=== PATIENT | male | born 1975 | race American Indian/Alaskan Native ===

== ENCOUNTER 2021-04-01 15:26 | Inpatient (IN) | payer SELFPAY ==
--- NOTE | 2021-04-01 15:03 | Emergency Department Report ---
HPI - General Chief Complaint: Seizure - HPI HPI: 46-year-old male with history of hypertension and jal-qfjwueb-[id number] diabetes mellitus brought in by EMS after the patient had an episode of shaking this morning. According to the EMS report, the patient has been noncompliant with all of his medications for an unknown period of time. His partner called 911 for seizure-like activity and when EMS arrived he seemed postictal and had been incontinent of urine. His fingerstick blood glucose was 479. He was hypertensive and slightly tachycardic in the 110s. Then almost immediately after arriving in our emergency department the patient apparently had another convulsive seizure which was witnessed. It started with shaking of his left lower extremity and deviation of his eyes to the right side and initially the patient was conscious before becoming unconscious and having convulsive activity for approximately 3 minutes before spontaneously resolving. Further details of the HPI are highly limited due to the patient's current clinical condition. ED Past Medical Hx - Past Medical History Previous Medical History?: Yes Hx Hypertension: Yes Hx Diabetes: Yes ED Review of Systems ROS: Stated complaint: SEIZURES Other details as noted in HPI Comment: Unobtainable due to pts medical conditions Physical Exam - Physical Exam Physical Exam: GENERAL: Well developed and well nourished. Extremely somnolent and arousable o nly to loud voice. HEAD: Normocephalic. No obvious signs of trauma. ENT: Very dry mucous membranes. There is a small laceration to the tongue. EYES: Extraocular movements are intact. Pupils are equal round and reactive to light bilaterally NECK: Supple. Full ROM is intact. Trachea is midline. LUNGS: Tachypneic. Equal chest rise bilaterally. Clear to auscultation bilaterally. CARDIOVASCULAR: Tachycardic with regular rhythm. No murmurs or rubs. VASCULAR: Cap refill < 2 seconds ABDOMEN: Abdomen is soft and nondistended. There is no significant tenderness, guarding or rebound. SKIN: Skin is warm and dry NEURO: Patient is awake, but very somnolent. Appears postictal. When examined 1 hour after presentation: manufacturer agent II-XII grossly intact. No focal deficits. Normal motor and sensory exam throughout. MUSCULOSKELETAL: No obvious deformities. No significant tenderness. Normal ROM throughout. BACK/SPINE: No midline tenderness or step-offs of the C/T/L spine. No costovertebral angle tenderness. ED Medical Decision Making - Lab Data Result diagrams: 04/01/21 15:34 04/01/21 17:51 Lab Results 04/01/21 04/01/21 04/01/21 Range/Units 15:32 15:34 15:34 WBC 20.4 H (4.5-11.0) K/mm3 RBC 6.88 H (3.65-5.03) M/mm3 Hgb 16.4 H (11.8-15.2) gm/dl Hct 56.3 H (35.5-45.6) % MCV 82 L (84-94) fl MCH 24 L (28-32) pg MCHC 29 L (32-34) % RDW 20.3 H (13.2-15.2) % Plt Count 860 H (140-440) K/mm3 Lymph # (Auto) Rheumatologist Add Manual Diff Complete Total Counted 100 Seg Neuts % (Manual) 53.0 (40.0-70.0) % Band Neutrophils % 4.0 % Lymphocytes % (Manual) 34.0 (13.4-35.0) % Reactive Lymphs % (Man) 5.0 % Monocytes % (Manual) 3.0 (0.0-7.3) % Blast Cells % 1.0 % Nucleated RBC % Not Reportable Seg Neutrophils # Man 10.8 H (1.8-7.7) K/mm3 Band Neutrophils # 0.8 K/mm3 Lymphocytes # (Manual) 6.9 H (1.2-5.4) K/mm3 Abs React Lymphs (Man) 1.0 K/mm3 Monocytes # (Manual) 0.6 (0.0-0.8) K/mm3 Eosinophils # (Manual) 0.0 (0.0-0.4) K/mm3 Basophils # (Manual) 0.0 (0.0-0.1) K/mm3 Metamyelocytes # 0.0 K/mm3 Myelocytes # 0.0 K/mm3 Promyelocytes # 0.0 K/mm3 Blast Cells # 0.4 K/mm3 WBC Morphology Not Reportable Hypersegmented Neuts Not Reportable Hyposegmented Neuts Not Reportable Hypogranular Neuts Not Reportable Smudge Cells Not Reportable Toxic Granulation Not Reportable Toxic Vacuolation Not Reportable Dohle Bodies Not Reportable Pelger-Huet Anomaly Not Reportable Brinda Rods Not Reportable Platelet Estimate Consistent w auto Clumped Platelets Not Reportable Plt Clumps, EDTA Not Reportable Large Platelets Not Reportable Giant Platelets Not Reportable Platelet Satelliting Not Reportable Plt Morphology Comment Not Reportable RBC Morphology Not Reportable Dimorphic RBCs Not Reportable Polychromasia Not Reportable Hypochromasia 1+ Poikilocytosis Not Reportable Anisocytosis 1+ Microcytosis Not Reportable Macrocytosis Not Reportable Spherocytes Not Reportable Pappenheimer Bodies Not Reportable Sickle Cells Not Reportable Target Cells Not Reportable Tear Drop Cells Not Reportable Ovalocytes Not Reportable Helmet Cells Not Reportable [place] Bodies Not Reportable Barney Rings Not Reportable [place] Cells Not Reportable Bite Cells Not Reportable Crenated Cell Not Reportable Elliptocytes Not Reportable Acanthocytes (Spur) Not Reportable Rouleaux Not Reportable Hemoglobin C Crystals Not Reportable Schistocytes Not Reportable Malaria parasites Not Reportable Facundo Bodies Not Reportable Hem Pathologist Commnt No PT 13.9 (12.2-14.9) Sec. INR 0.96 (0.87-1.13) APTT 26.1 (24.2-36.6) Sec. VBG pH (7.320-7.420) Sodium (137-145) mmol/L Potassium (3.6-5.0) mmol/L Chloride (98-107) mmol/L Carbon Dioxide (22-30) mmol/L Anion Gap mmol/L BUN (9-20) mg/dL Creatinine (0.8-1.3) mg/dL Estimated GFR ml/min BUN/Creatinine Ratio % Glucose (75-100) mg/dL POC Glucose 555 H (70-105) mg/dL Calcium (8.4-10.2) mg/dL Magnesium (1.7-2.3) mg/dL Total Bilirubin (0.1-1.2) mg/dL Direct Bilirubin (0-0.2) mg/dL Indirect Bilirubin mg/dL AST (5-40) units/L ALT (7-56) units/L Alkaline Phosphatase (35-129) units/L Ammonia (25-60) umol/L Troponin T (0.00-0.029) ng/mL NT-Pro-B Natriuret Pep (0-450) pg/mL Total Protein (6.3-8.2) g/dL Albumin (3.9-5) g/dL Albumin/Globulin Ratio % Lipase (13-60) units/L TSH (0.270-4.200) mlU/mL Salicylates (2.8-20.0) mg/dL Acetaminophen (10.0-30.0) ug/mL Plasma/Serum Alcohol (0-0.07) % 04/01/21 04/01/21 04/01/21 Range/Units 15:34 15:34 15:34 WBC (4.5-11.0) K/mm3 RBC (3.65-5.03) M/mm3 Hgb (11.8-15.2) gm/dl Hct (35.5-45.6) % MCV (84-94) fl MCH (28-32) pg MCHC (32-34) % RDW (13.2-15.2) % Plt Count (140-440) K/mm3 Lymph # (Auto) Add Manual Diff Total Counted Seg Neuts % (Manual) (40.0-70.0) % Band Neutrophils % % Lymphocytes % (Manual) (13.4-35.0) % Reactive Lymphs % (Man) % Monocytes % (Manual) (0.0-7.3) % Blast Cells % % Nucleated RBC % Seg Neutrophils # Man (1.8-7.7) K/mm3 Band Neutrophils # K/mm3 Lymphocytes # (Manual) (1.2-5.4) K/mm3 Abs React Lymphs (Man) K/mm3 Monocytes # (Manual) (0.0-0.8) K/mm3 Eosinophils # (Manual) (0.0-0.4) K/mm3 Basophils # (Manual) (0.0-0.1) K/mm3 Metamyelocytes # K/mm3 Myelocytes # K/mm3 Promyelocytes # K/mm3 Blast Cells # K/mm3 WBC Morphology Hypersegmented Neuts Hyposegmented Neuts Hypogranular Neuts Smudge Cells Toxic Granulation Toxic Vacuolation Dohle Bodies Pelger-Huet Anomaly Brinda Rods Platelet Estimate Clumped Platelets Plt Clumps, EDTA Large Platelets Giant Platelets Platelet Satelliting Plt Morphology Comment RBC Morphology Dimorphic RBCs Polychromasia Hypochromasia Poikilocytosis Anisocytosis Microcytosis Macrocytosis Spherocytes Pappenheimer Bodies Sickle Cells Target Cells Tear Drop Cells Ovalocytes Helmet Cells [place] Bodies Barney Rings [place] Cells Bite Cells Crenated Cell Elliptocytes Acanthocytes (Spur) Rouleaux Hemoglobin C Crystals Schistocytes Malaria parasites Facundo Bodies Hem Pathologist Commnt PT (12.2-14.9) Sec. INR (0.87-1.13) APTT (24.2-36.6) Sec. VBG pH (7.320-7.420) Sodium 137 (137-145) mmol/L Potassium 3.4 L (3.6-5.0) mmol/L Chloride 96.1 L (98-107) mmol/L Carbon Dioxide 7 L* (22-30) mmol/L Anion Gap 37 mmol/L BUN 16 (9-20) mg/dL Creatinine 1.5 H (0.8-1.3) mg/dL Estimated GFR > 60 ml/min BUN/Creatinine Ratio 11 % Glucose 578 H* (75-100) mg/dL POC Glucose (70-105) mg/dL Calcium 9.9 (8.4-10.2) mg/dL Magnesium 2.30 (1.7-2.3) mg/dL Total Bilirubin 0.20 (0.1-1.2) mg/dL Direct Bilirubin < 0.2 (0-0.2) mg/dL Indirect Bilirubin 0.0 mg/dL AST 26 (5-40) units/L ALT 29 (7-56) units/L Alkaline Phosphatase 163 H (35-129) units/L Ammonia 98.0 H (25-60) umol/L Troponin T < 0.010 (0.00-0.029) ng/mL NT-Pro-B Natriuret Pep 101.8 (0-450) pg/mL Total Protein 8.1 (6.3-8.2) g/dL Albumin 4.4 (3.9-5) g/dL Albumin/Globulin Ratio 1.2 % Lipase 32 (13-60) units/L TSH 1.990 (0.270-4.200) mlU/mL Salicylates (2.8-20.0) mg/dL Acetaminophen (10.0-30.0) ug/mL Plasma/Serum Alcohol (0-0.07) % 04/01/21 04/01/21 04/01/21 Range/Units 15:34 15:34 15:34 WBC (4.5-11.0) K/mm3 RBC (3.65-5.03) M/mm3 Hgb (11.8-15.2) gm/dl Hct (35.5-45.6) % MCV (84-94) fl MCH (28-32) pg MCHC (32-34) % RDW (13.2-15.2) % Plt Count (140-440) K/mm3 Lymph # (Auto) Add Manual Diff Total Counted Seg Neuts % (Manual) (40.0-70.0) % Band Neutrophils % % Lymphocytes % (Manual) (13.4-35.0) % Reactive Lymphs % (Man) % Monocytes % (Manual) (0.0-7.3) % Blast Cells % % Nucleated RBC % Seg Neutrophils # Man (1.8-7.7) K/mm3 Band Neutrophils # K/mm3 Lymphocytes # (Manual) (1.2-5.4) K/mm3 Abs React Lymphs (Man) K/mm3 Monocytes # (Manual) (0.0-0.8) K/mm3 Eosinophils # (Manual) (0.0-0.4) K/mm3 Basophils # (Manual) (0.0-0.1) K/mm3 Metamyelocytes # K/mm3 Myelocytes # K/mm3 Promyelocytes # K/mm3 Blast Cells # K/mm3 WBC Morphology Hypersegmented Neuts Hyposegmented Neuts Hypogranular Neuts Smudge Cells Toxic Granulation Toxic Vacuolation Dohle Bodies Pelger-Huet Anomaly Brinda Rods Platelet Estimate Clumped Platelets Plt Clumps, EDTA Large Platelets Giant Platelets Platelet Satelliting Plt Morphology Comment RBC Morphology Dimorphic RBCs Polychromasia Hypochromasia Poikilocytosis Anisocytosis Microcytosis Macrocytosis Spherocytes Pappenheimer Bodies Sickle Cells Target Cells Tear Drop Cells Ovalocytes Helmet Cells [place] Bodies Barney Rings [place] Cells Bite Cells Crenated Cell Elliptocytes Acanthocytes (Spur) Rouleaux Hemoglobin C Crystals Schistocytes Malaria parasites Facundo Bodies Hem Pathologist Commnt PT (12.2-14.9) Sec. INR (0.87-1.13) APTT (24.2-36.6) Sec. VBG pH (7.320-7.420) Sodium (137-145) mmol/L Potassium (3.6-5.0) mmol/L Chloride (98-107) mmol/L Carbon Dioxide (22-30) mmol/L Anion Gap mmol/L BUN (9-20) mg/dL Creatinine (0.8-1.3) mg/dL Estimated GFR ml/min BUN/Creatinine Ratio % Glucose (75-100) mg/dL POC Glucose (70-105) mg/dL Calcium (8.4-10.2) mg/dL Magnesium (1.7-2.3) mg/dL Total Bilirubin (0.1-1.2) mg/dL Direct Bilirubin (0-0.2) mg/dL Indirect Bilirubin mg/dL AST (5-40) units/L ALT (7-56) units/L Alkaline Phosphatase (35-129) units/L Ammonia (25-60) umol/L Troponin T (0.00-0.029) ng/mL NT-Pro-B Natriuret Pep (0-450) pg/mL Total Protein (6.3-8.2) g/dL Albumin (3.9-5) g/dL Albumin/Globulin Ratio % Lipase (13-60) units/L TSH (0.270-4.200) mlU/mL Salicylates < 0.3 L (2.8-20.0) mg/dL Acetaminophen 5.0 L (10.0-30.0) ug/mL Plasma/Serum Alcohol < 0.01 (0-0.07) % 04/01/21 Range/Units 15:34 WBC (4.5-11.0) K/mm3 RBC (3.65-5.03) M/mm3 Hgb (11.8-15.2) gm/dl Hct (35.5-45.6) % MCV (84-94) fl MCH (28-32) pg MCHC (32-34) % RDW (13.2-15.2) % Plt Count (140-440) K/mm3 Lymph # (Auto) Add Manual Diff Total Counted Seg Neuts % (Manual) (40.0-70.0) % Band Neutrophils % % Lymphocytes % (Manual) (13.4-35.0) % Reactive Lymphs % (Man) % Monocytes % (Manual) (0.0-7.3) % Blast Cells % % Nucleated RBC % Seg Neutrophils # Man (1.8-7.7) K/mm3 Band Neutrophils # K/mm3 Lymphocytes # (Manual) (1.2-5.4) K/mm3 Abs React Lymphs (Man) K/mm3 Monocytes # (Manual) (0.0-0.8) K/mm3 Eosinophils # (Manual) (0.0-0.4) K/mm3 Basophils # (Manual) (0.0-0.1) K/mm3 Metamyelocytes # K/mm3 Myelocytes # K/mm3 Promyelocytes # K/mm3 Blast Cells # K/mm3 WBC Morphology Hypersegmented Neuts Hyposegmented Neuts Hypogranular Neuts Smudge Cells Toxic Granulation Toxic Vacuolation Dohle Bodies Pelger-Huet Anomaly Brinda Rods Platelet Estimate Clumped Platelets Plt Clumps, EDTA Large Platelets Giant Platelets Platelet Satelliting Plt Morphology Comment RBC Morphology Dimorphic RBCs Polychromasia Hypochromasia Poikilocytosis Anisocytosis Microcytosis Macrocytosis Spherocytes Pappenheimer Bodies Sickle Cells Target Cells Tear Drop Cells Ovalocytes Helmet Cells Al[place] Bodies Barney Rings [place] Cells Bite Cells Crenated Cell Elliptocytes Acanthocytes (Spur) Rouleaux Hemoglobin C Crystals Schistocytes Malaria parasites Facundo Bodies Hem Pathologist Commnt PT (12.2-14.9) Sec. INR (0.87-1.13) APTT (24.2-36.6) Sec. VBG pH 7.102 L* (7.320-7.420) Sodium (137-145) mmol/L Potassium (3.6-5.0) mmol/L Chloride (98-107) mmol/L Carbon Dioxide (22-30) mmol/L Anion Gap mmol/L BUN (9-20) mg/dL Creatinine (0.8-1.3) mg/dL Estimated GFR ml/min BUN/Creatinine Ratio % Glucose (75-100) mg/dL POC Glucose (70-105) mg/dL Calcium (8.4-10.2) mg/dL Magnesium (1.7-2.3) mg/dL Total Bilirubin (0.1-1.2) mg/dL Direct Bilirubin (0-0.2) mg/dL Indirect Bilirubin mg/dL AST (5-40) units/L ALT (7-56) units/L Alkaline Phosphatase (35-129) units/L Ammonia (25-60) umol/L Troponin T (0.00-0.029) ng/mL NT-Pro-B Natriuret Pep (0-450) pg/mL Total Protein (6.3-8.2) g/dL Albumin (3.9-5) g/dL Albumin/Globulin Ratio % Lipase (13-60) units/L TSH (0.270-4.200) mlU/mL Salicylates (2.8-20.0) mg/dL Acetaminophen (10.0-30.0) ug/mL Plasma/Serum Alcohol (0-0.07) % - Medical Decision Making 46-year-old male with history of diabetes mellitus noncompliant with medications brought in initially for shaking but with first partial and then tonic-clonic seizure while awaiting a room in our emergency department. Initial assessment he appears postictal and has been incontinent of urine. He also has a small hemostatic tongue lac. Fingerstick blood glucose is in the high 400s. Given that he has now had multiple seizures according to the EMS report we will load with 1500 mg of IV Keppra. We will order very broad work-up including sepsis labs and CT of the head to assess for evidence of intracranial bleeding versus cerebral edema versus other intracranial abnormality to explain the patient's presentation. We will place a call to teleneurology. We will start with 1 L of normal saline for now. Spoke with Dr. Aldana of teleneurology who agrees with current management with Keppra loading. CT of the head reveals no acute abnormalities. Labs reveal several abnormalities including white blood cell count of 20.4 and hemoglobin of 16.4 shows platelets of 860 which I suspect is related to extreme volume depletion and hemoconcentration. Creatinine is elevated at 1.5 from unknown baseline. Severe acidosis with bicarb of 7 and anion gap of 37. Hyperglycemic in the 500s. Hypokalemic with potassium of 3.4. Given this dangerous potassium level we will give 40 mEq of p.o. potassium and 40 mEq of IV potassium. He also has elevated ammonia of 98 which I suspect is related to severe dehydration and not hepatic encephalopathy given normal liver enzymes. We will give 2 L of LR and broad-spectrum vancomycin and ceftriaxone given his leukocytosis. Insulin drip was ordered per DKA protocol. On repeat assessment, patient is much more alert now and able to participate in conversation. He has a nonfocal exam at this time, although he remains with severe somnolence. At 4:47 PM I spoke with Dr. Nam, the on-call hospitalist regarding the case. He accepts patient for admission and will assume care. At 5:10 PM I spoke with Dr. Mckeon of critical care medicine regarding the case. He accepts the patient for admission to the ICU Critical Care Time: Yes Critical care time in (mins) excluding proc time.: 50 Critical care attestation.: If time is entered above; I have spent that time in minutes in the direct care of this critically ill patient, excluding procedure time. Critical care time was spent in the evaluation/assessment, work-up, and management of new onset seizures, DKA with severe metabolic encephalopathy requiring insulin drip, IV Keppra loading, and consultation with multiple specialist as well as frequent reevaluation reassessment. ED Disposition Clinical Impression: Acute kidney injury (LAY) with acute tubular necrosis (ATN), Toxic metabolic encephalopathy, Acidosis, Status epilepticus, Dehydration, Hyperammonemia Sepsis Qualifiers: Severe sepsis acute organ dysfunction type: encephalopathy DKA (diabetic ketoacidosis) Qualifiers: Diabetes mellitus complication detail: without coma Disposition: 09 ADMITTED INPATIENT Is pt being admited?: Yes Condition: Critical
[~2021-04-01 15:26] MED LIST: SODIUM CHLORIDE 0.9% 1000 ML 1,000 ML IV ONE; levETIRAcetam 1000 MG/NS 0.75% 1,000 MG/100 ML BAG IV ONE; levETIRAcetam 500 MG in DEXTROSE 5% IN WATER 100 ML IV ONE
[2021-04-01] MEDS ORDERED: LORazepam 2 MG/ML VIAL IV ONE (15:28)
--- NOTE | 2021-04-01 15:33 | Consultation ---
Medications and Allergies Active Meds: Active Medications Levetiracetam (Keppra 1,000 Mg/Ns 0.75% 100ml) 1,000 mg in 100 mls @ 400 mls/hr IV ONCE ONE Stop: 04/01/21 15:15 Levetiracetam 500 mg/ Dextrose 105 mls @ 400 mls/hr IV ONCE ONE Stop: 04/01/21 15:16 Sodium Chloride (Nacl 0.9% 1000 Ml) 1,000 mls @ 999 mls/hr IV BOLUS ONE Stop: 04/01/21 16:02 Lorazepam (Lorazepam 2 Mg/Ml Vial) 2 mg IV ONCE ONE Stop: 04/01/21 15:29 Assessment and Plan [facility] Consult Note # Demographics Consult Type: Acute Stroke Level 2 (4.5-24 hrs) Patient Location: Emergency Room First Name: may Last Name: david Gender: Male Facility: [facility] Time of Initial Page (Eastern Time): 04/01/2021, 15:06 Time of Return Call (Eastern Time): 04/01/2021, 15:07 Phone Only Consult: 46M with no seizure history had what reported to be seizure. Post-ictal after reportedly. Hyperglycemia reported. CT head should be performed to r/o obvious structural issue, then MRI brain wwo, eeg recommended. Agree with empiric keppra, continue 500mg PO/IV for now. Seizure precautions, no driving. # Logistics Telemedicine: phone only
[2021-04-01 15:54] LABS: Mean Corpuscular HGB Conc 29 % (32-34); Mean Corpuscular Volume 82 fl (84-94); Platelet Count 860 K/mm3 (140-440); Red Blood Count 6.88 M/mm3 (3.65-5.03)
[2021-04-01 16:17] LABS: Alanine Aminotransferase 29 units/L (7-56); Albumin 4.4 g/dL (3.9-5); BUN/Creatinine Ratio 11; Blood Urea Nitrogen 16 mg/dL (9-20); Calcium 9.9 mg/dL (8.4-10.2); Hemoglobin 16.4 gm/dl (11.8-15.2); Hemolysis Index 15
[2021-04-01 16:18] LABS: Hematocrit 56.3 % (35.5-45.6); Red Cell Distribution Width 20.3 % (13.2-15.2)
--- NOTE | 2021-04-01 16:19 | Cat Scan Report ---
. CT head/brain wo con INDICATION / CLINICAL INFORMATION: 46 years Male; seizure X2 . TECHNIQUE: Routine CT head without contrast. All CT scans at this location are performed using CT dos e reduction for ALARA by means of automated exposure control. COMPARISON: None. FINDINGS: BRAIN / INTRACRANIAL CONTENTS: No acute hemorrhage, mass effect, midline shift, hydrocephalus, or acu te, large territorial infarct. No signs of significant atrophy or chronic infarct. No significant whi te matter abnormality seen. CRANIOCERVICAL JUNCTION: No significant abnormality. ORBITS: No significant abnormality of visualized orbits. SINUSES / MASTOIDS: Moderate mucosal thickening seen in the right maxillary antrum. ADDITIONAL FINDINGS: None. IMPRESSION: 1. No focal mass, hemorrhage, hydrocephalus, or acute, large territorial infarct. Signer Name: Ricardo Tubbs MD, III Signed: 04/01/2021 4:14 PM Workstation Name: [id number]
[2021-04-01 16:20] LABS: Bilirubin,Direct < 0.2 mg/dL (0-0.2)
[2021-04-01] MEDS ORDERED: SODIUM CHLORIDE 0.9% 1000 ML 1,000 ML IV ONE (16:38)
[2021-04-01 16:39] LABS: INR 0.96 (0.87-1.13); Partial Thromboplastin Time 26.1 Sec. (24.2-36.6)
[2021-04-01] MEDS ORDERED: POTASSIUM CHLORIDE ER 20 MEQ TAB PO ONE (16:41)
[2021-04-01] MEDS ORDERED: LACTATED RINGERS 1,000 ML IV ONE ×2 (16:42)
--- NOTE | 2021-04-01 16:48 | History and Physical Report ---
History of Present Illness Chief complaint: Confused History of present illness: 46 YO Male with HTN, DM, Medication noncompliance presents to ED for evaluation. Patient is confused and lethargic at the time my evaluation is unable to provide history. Patient history brought by EMS staff, ED staff, as well as the patient's friend. As per patient friend the patient has experienced increased confusion and weakness over the past 1 day with worsening symptoms over the same timeframe. Patient was found to have a witnessed seizure today. EMS was notified due to worsening of the aforementioned symptoms. Upon arrival the patient was found to be in distress and subsequent transported to [facility] for further care and evaluation of the aforementioned symptoms. The patient was seen and evaluated in the emergency department. All lab and imaging studies reviewed. The patient was found to have bilateral pneumonia on chest x-ray complicated by sepsis as well as diabetic ketoacidosis, acute kidney injury, and toxic metabolic encephalopathy. Patient also found to have status epilepticus. Patient admitted to ICU and initiated on sepsis protocol, DKA protocol, pneumonia protocol, as well as coronavirus protocol. Patient has diminished cognition at the time my evaluation but has a positive gag reflex and is able to protect his airway at the time my evaluation. Patient loaded with Keppra in the emergency department. No prior admission for review. No medication listed at time of admission for reconciliation. Advanced care planning conducted in ED. Past History Past Medical History: diabetes, hypertension Past Surgical History: No surgical history, Other (Reviewed) Social history: single. denies: smoking, alcohol abuse, prescription drug abuse Family history: diabetes, hypertension Medications and Allergies Allergies Allergy/AdvReac Type Severity Reaction Status Date / Time No Known Allergies Allergy Unverified 04/01/21 15:33 Active Meds: Active Medications Sodium Chloride (Nacl 0.9% 1000 Ml) 1,000 mls @ 999 mls/hr IV BOLUS ONE Stop: 04/01/21 17:38 Potassium Chloride (Kcl 10meq/100ml) 10 meq in 100 mls @ 100 mls/hr IV Q1H DUY Stop: 04/01/21 20:59 Lactated Ringer's (Lactated Ringers) 1,000 mls @ 999 mls/hr IV BOLUS ONE Stop: 04/01/21 17:42 Lactated Ringer's (Lactated Ringers) 1,000 mls @ 999 mls/hr IV BOLUS ONE Stop: 04/01/21 17:42 Review of Systems ROS unobtainable: due to mental status Exam - Constitutional General appearance: Present: severe distress - EENT Eyes: Present: PERRL ENT: clear oral mucosa, hearing decreased - Neck Neck: Present: supple, normal ROM - Respiratory Respiratory effort: labored, accessory muscle use Respiratory: bilateral: diminished, rhonchi - Cardiovascular Rhythm: other (Tachycardia) Heart Sounds: Present: S1 & S2. Absent: rub, click - Extremities Extremities: pulses symmetrical, No edema Peripheral Pulses: abnormal (Capillary refill greater than 3.5 seconds) - Abdominal Male genitourinary: Present: normal - Integumentary Integumentary: Present: dry, clammy, decreased turgor - Musculoskeletal Musculoskeletal: generalized weakness - Psychiatric Psychiatric: no appropriate mood/affect, no intact judgment & insight, no memory intact - Neurologic Neurologic: CNII-XII intact, no focal deficits, moves all extremities, no gait normal HEART Score - HEART Score Troponin: Troponin T < 0.010 ng/mL (0.00-0.029) 04/01/21 15:34 Results - Labs CBC & Chem 7: 04/01/21 15:34 04/01/21 15:34 Labs: Abnormal lab results 04/01/21 04/01/21 04/01/21 Range/Units 15:32 15:34 15:34 WBC 20.4 H (4.5-11.0) K/mm3 RBC 6.88 H (3.65-5.03) M/mm3 Hgb 16.4 H (11.8-15.2) gm/dl Hct 56.3 H (35.5-45.6) % MCV 82 L (84-94) fl MCH 24 L (28-32) pg MCHC 29 L (32-34) % RDW 20.3 H (13.2-15.2) % Plt Count 860 H (140-440) K/mm3 VBG pH (7.320-7.420) Potassium 3.4 L (3.6-5.0) mmol/L Chloride 96.1 L (98-107) mmol/L Carbon Dioxide 7 L* (22-30) mmol/L Creatinine 1.5 H (0.8-1.3) mg/dL Glucose 578 H* (75-100) mg/dL POC Glucose 555 H (70-105) mg/dL Alkaline Phosphatase 163 H (35-129) units/L Ammonia (25-60) umol/L Salicylates (2.8-20.0) mg/dL Acetaminophen (10.0-30.0) ug/mL 04/01/21 04/01/21 04/01/21 Range/Units 15:34 15:34 15:34 WBC (4.5-11.0) K/mm3 RBC (3.65-5.03) M/mm3 Hgb (11.8-15.2) gm/dl Hct (35.5-45.6) % MCV (84-94) fl MCH (28-32) pg MCHC (32-34) % RDW (13.2-15.2) % Plt Count (140-440) K/mm3 VBG pH (7.320-7.420) Potassium (3.6-5.0) mmol/L Chloride (98-107) mmol/L Carbon Dioxide (22-30) mmol/L Creatinine (0.8-1.3) mg/dL Glucose (75-100) mg/dL POC Glucose (70-105) mg/dL Alkaline Phosphatase (35-129) units/L Ammonia 98.0 H (25-60) umol/L Salicylates < 0.3 L (2.8-20.0) mg/dL Acetaminophen 5.0 L (10.0-30.0) ug/mL 04/01/21 Range/Units 15:34 WBC (4.5-11.0) K/mm3 RBC (3.65-5.03) M/mm3 Hgb (11.8-15.2) gm/dl Hct (35.5-45.6) % MCV (84-94) fl MCH (28-32) pg MCHC (32-34) % RDW (13.2-15.2) % Plt Count (140-440) K/mm3 VBG pH 7.102 L* (7.320-7.420) Potassium (3.6-5.0) mmol/L Chloride (98-107) mmol/L Carbon Dioxide (22-30) mmol/L Creatinine (0.8-1.3) mg/dL Glucose (75-100) mg/dL POC Glucose (70-105) mg/dL Alkaline Phosphatase (35-129) units/L Ammonia (25-60) umol/L Salicylates (2.8-20.0) mg/dL Acetaminophen (10.0-30.0) ug/mL Assessment and Plan - Patient Problems (1) Sepsis Current Visit: Yes Status: Acute Qualifiers: Severe sepsis acute organ dysfunction type: encephalopathy Plan to address problem: Sepsis protocol: Chest x-ray, CBC, CMP, urinalysis, IV fluid resuscitation therapy, IV antibiotic therapy, supplemental oxygen, serial lactic acid level, monitor fluid balance, maintain mean arterial pressure greater than or equal to 65, blood culture, repeat CBC in a.m. The high probability of a clinically significant, sudden or life threatening deterioration of the [pulmonary, renal, infectious disease, endocrine] system(s) required my full and direct attention, intervention and personal management. The aggregate critical care time was [65] minutes. This time is in addition to time spent performing reported procedures but includes the following: [x] Data Review and interpretation [x] Patient assessment and monitoring of vital signs [x] Documentation [x] Medication orders and management (2) DKA (diabetic ketoacidosis) Current Visit: Yes Status: Acute Qualifiers: Diabetes mellitus complication detail: without coma Plan to address problem: DKA protocol: IV fluid resuscitation therapy, insulin drip, serial BMP, monitor anion gap, potassium repletion as per protocol, (3) Pneumonia Current Visit: Yes Status: Acute Plan to address problem: Pneumonia protocol: Chest x-ray, CBC, CMP, IV antibiotic therapy, supplemental oxygen, pulse oximetry, nebulizer therapy, supportive care. (4) Suspected 2019 novel coronavirus infection Current Visit: Yes Status: Acute Plan to address problem: Coronavirus protocol: IV antibiotic therapy, IV steroid therapy, vitamin C therapy, vitamin D therapy, zinc therapy, prophylactic anticoagulation (5) Acute kidney injury (LAY) with acute tubular necrosis (ATN) Current Visit: Yes Status: Acute Plan to address problem: BMP, IV fluid resuscitation therapy, repeat BMP in a.m. to monitor serum creatinine as well as GFR. (6) Acidosis Current Visit: Yes Status: Acute Plan to address problem: IV fluid resuscitation therapy, IV bicarbonate therapy, BMP, repeat BMP in a.m. (7) Toxic metabolic encephalopathy Current Visit: Yes Status: Acute Plan to address problem: CT head, neuro check, seizure precautions, aspiration precautions, treat sepsis. (8) Status epilepticus Current Visit: Yes Status: Acute Plan to address problem: Keppra loading in ED, Keppra 500 mg twice daily, treat sepsis, supportive care. (9) DVT prophylaxis Current Visit: Yes Status: Acute Plan to address problem: SCDs bilateral lower extremities while in bed, prophylactic anticoagulation (10) Advance care planning Current Visit: Yes Status: Acute Plan to address problem: Disease education conducted, care plan discussed, diagnoses discussed, prognosis discussed, patient is full code, +30 minutes.
[2021-04-01] MEDS ORDERED: DEXTROSE 50% IN WATER (25GM) 50 ML SYRINGE IV PRN ×2 (16:55→17:07)
[2021-04-01] MEDS ORDERED: HYDROmorphone 1 MG/1 ML INJ IV PRN ×2 (16:55)
[2021-04-01] MEDS ORDERED: ALBUTEROL 2.5 MG/3 ML NEBU IH PRN (16:55)
[2021-04-01] MEDS ORDERED: ACETAMINOPHEN 325 MG TAB PO PRN (16:55)
[2021-04-01] MEDS ORDERED: SODIUM CHLORIDE 0.9% 1000 ML IV SOLN IV ONE (16:55)
--- NOTE | 2021-04-01 16:55 | XRay Report ---
CHEST 1 VIEW 04/01/2021 3:48 PM INDICATION / CLINICAL INFORMATION: seizure. COMPARISON: None FINDINGS: SUPPORT DEVICES: None. HEART / MEDIASTINUM: No significant abnormality. LUNGS / PLEURA: No significant pulmonary or pleural abnormality. No pneumothorax. ADDITIONAL FINDINGS: No significant additional findings. IMPRESSION: 1. No acute findings. Signer Name: Juliano Kirby DO Signed: 04/01/2021 4:51 PM Workstation Name: [id number][id number]
[2021-04-01] MEDS ORDERED: VANCOMYCIN 2,000 MG in SODIUM CHLORIDE 0.9% 500 ML 500 ML IV ONE (16:59)
[2021-04-01] MEDS ORDERED: cefTRIAXone/NS 2 GM/100 ML 2 GM/100 ML BAG IV ONE (17:00)
[2021-04-01 17:34] LABS: Band Neutrophils # (Manual) 0.8 K/mm3; Total Cells Counted 100
[2021-04-01 17:36] LABS: Anisocytosis 1+; Hypochromasia 1+
[2021-04-01 17:37] LABS: Platelet Estimate Consistent w Auto
[2021-04-01] MEDS ORDERED: INSULIN REGULAR, HUMAN 100 UNITS in SODIUM CHLORIDE 0.9% 99 ML IV SCH (18:00)
[2021-04-01 18:30] LABS: Bilirubin,Urine NEG (Negative); Blood,Urine NEG (Negative); Color,Urine Straw (Yellow); Mucus,Urine FEW /HPF; Urobilinogen,Urine < 2.0 mg/dL (<2.0)
[2021-04-01 18:35] LABS: Amphetamine Screen,Urine Negative; Benzodiazepines Screen,Urine Negative; Cocaine Screen,Urine Negative; Methadone Screen,Urine Negative; Opiate Screen,Urine Negative
[2021-04-01] MEDS: POTASSIUM CHLORIDE 10 MEQ 10 MEQ/100 ML BAG IV SCH ×2 (18:38→19:58)
[2021-04-01 18:40] LABS: BUN/Creatinine Ratio 13; Blood Urea Nitrogen 16 mg/dL (9-20); Calcium 8.5 mg/dL (8.4-10.2); Hemolysis Index 5
[2021-04-01] MEDS: INSULIN REGULAR, HUMAN 100 UNITS in SODIUM CHLORIDE 0.9% 99 ML IV SCH (18:40)
[2021-04-01 19:03] LABS: Cannabinoid Screen,Urine Positive
[2021-04-01] MEDS: AZITHROMYCIN/NS 500 MG/250 ML 500 MG/250 ML BAG IV SCH (20:02)
[2021-04-01] MEDS: SODIUM BICARB 8.4% 50 MEQ/50 ML SYRINGE IV SCH (20:02)
[2021-04-01 20:20] LABS: BUN/Creatinine Ratio 14; Blood Urea Nitrogen 15 mg/dL (9-20); Calcium 8.8 mg/dL (8.4-10.2); Hemolysis Index 15
[2021-04-01] MEDS: D5W/0.45% NACL/KCL 20 MEQ 20 MEQ/1,000 ML BAG IV SCH (21:00)
[2021-04-01] MEDS: HEPARIN 5,000 UNIT/1 ML VIAL SUB-Q SCH (23:18)
[2021-04-01] MEDS: levETIRAcetam 500 MG/5 ML ORAL LIQD PO SCH (23:18)
[2021-04-01] MEDS: ZINC SULFATE 220 MG CAP PO SCH (23:18)
[2021-04-01] MEDS: ASCORBIC ACID 500 MG TAB PO SCH (23:18)
[2021-04-01] MEDS: methylPREDNISolone Sod Succinate 40 MG/1 ML INJ IV SCH (23:19)
[2021-04-01 23:37] LABS: BUN/Creatinine Ratio 13; Blood Urea Nitrogen 13 mg/dL (9-20); Calcium 8.6 mg/dL (8.4-10.2); Hemolysis Index 3
[2021-04-02 05:08] LABS: BUN/Creatinine Ratio 12; Blood Urea Nitrogen 11 mg/dL (9-20); Calcium 8.5 mg/dL (8.4-10.2); Hemolysis Index 9
[2021-04-02] MEDS: methylPREDNISolone Sod Succinate 40 MG/1 ML INJ IV SCH ×2 (05:42→13:27)
[2021-04-02] MEDS: D5W/0.45% NACL/KCL 20 MEQ 20 MEQ/1,000 ML BAG IV SCH ×2 (05:45→14:17)
[2021-04-02] MEDS: SODIUM BICARB 8.4% 50 MEQ/50 ML SYRINGE IV SCH ×2 (08:26→13:28)
[2021-04-02] MEDS: ASCORBIC ACID 500 MG TAB PO SCH ×2 (10:34→21:19)
[2021-04-02] MEDS: CHOLECALCIFEROL (VIT D3) 400 UNIT TAB PO SCH (10:34)
[2021-04-02] MEDS: ZINC SULFATE 220 MG CAP PO SCH ×2 (10:34→21:19)
[2021-04-02] MEDS: HEPARIN 5,000 UNIT/1 ML VIAL SUB-Q SCH ×2 (10:34→21:18)
[2021-04-02] MEDS: levETIRAcetam 500 MG/5 ML ORAL LIQD PO SCH ×2 (10:34→21:17)
[2021-04-02] MEDS ORDERED: amLODIPine 5 MG TAB PO SCH (11:00)
--- NOTE | 2021-04-02 12:00 | Progress Note ---
Assessment and Plan Assessment and plan: This is a 46-year-old male with known past medical history of DM and HTN, noncompliant with meds who was admitted for seizur, DKA, and sepsis Hospital Course to Date: 04/02/21- Patient is fully AAO, RA, no signs of any acute distress. Remains on DKA protocol, gap is closed plan to transition to SubQ insulin.. No more seizure like activities reported, EEG ispending, and Neuro is consulted. Patient has been hypertensive overnight, per patient he lost his job and insurance recently and has not been able to refill his medications. He reported that he was taking Norvasc for high blood pressure, but did not report what he was taking for his DM. Will start patient back on Norvasc Qday with some PRN Hydralazine. And case management consulted for possible medications assistance. Patient is stable for transfer to the floor once he is off the insulin gtt. Assessment and Plan #Status Epilepticus - Presented with witnessed seizure - CT head with no acute intracranial abnormality - Was loaded with Keppra in the ED - EEG is pending - Continue Keppra BID - PRN Benzo for seizures like activity - Avoid Delirium - Maintain regular sleep cycle - Neurology consulted #Hypertension - Patient has a history of HTN - Recently lost his job, unable to afford them at this - Per patient he was taking Norvasc at some point - Will restart Norvasc t 5mg Qday - PRN Hydralazine for SBP greater than 160 - Maintain adequate perfusion - Continue continuous IVF per DKA protocol - Continue to monitor blood pressure per protocol #??Bilateral Pneumonia #COVID PUI - Initial CXR with no acute findings - Presented with diminished cognition intially required O2 supplement - Currently on RA, SPO2 94 to 97% - COVID swab pending - IV steroids was initiated in the ED, will D/C if COVID come back neg. - 2L O2 supplement on standby at the bedside - Continue SPO2 monitoring for a SPO2 goal above 92% - CCM to follow #GI:NPO - Keep patient NPO while on DKA protocol - Plan to transition to SuBQ insulin - PPI-Pepcid added #Acute kidney injury (LAY) with acute tubular necrosis (ATN) #Hypokalemia- improved #Hyponatremia - Patient's baseline is unknown - SCr. as high as 1.5 on admit - Probably related to dehydration/DKA - SCr. improved with IV rehydration, Scr. 0.9 this am - Strict intake and output - Avoid nephrotoxic medications; Renally dose medications - Continue IVF for now - Monitor and replace electrolytes as needed - Trend BMP #Sepsis #Leukocytosis #Lactic Acidosis #??Bilateral Pneumonia #COVID PUI - Patient presented obtunded, with leukocytosis and tachycardia - Most likely related to DKA and dehydration - WBCs as high as 20.4 - Lactic acid as high as 2.90, improved with IV hydration to 1.10 - Initial CXR with no acute findings - Patient remains afebrile - UA +ketones, glucose, & protein, otherwise unremarkable - Blood Culture and Urine pending - COVID swab pending - CRP normal, Procal pending - Continue Empiric IV Abx for now - Daily CBC monitor - F/u on culture data - Consider ID consult if febrile or if leukocytosis worsen #DKA (diabetic ketoacidosis) #H/o DM - A1c pending - On DKA protocol - Gap is close plan to transition to SubQ insulin today - Avoid Hypoglycemia #DVT prophylaxis - Continue AC- Heparin SubQ - SCDs bilateral lower extremities while in bed The high probability of a clinically significant, sudden or life threatening deterioration of the [multiple] system(s) required my full and direct attention, intervention and personal management. The aggregate critical care time was [60] minutes. This time is in addition to time spent performing reported procedures but includes the following: [x] Data Review and interpretation [x] Patient assessment and monitoring of vital signs [x] Documentation [x] Medication orders and management Disposition Plan: ICU Total Time Spent with Patient (Minutes): 60 History Interval history: Patient is seen and examined at the bedside. Fully AAo, on RA,denied any pain nor any discomfort. Remains on the DKA protocol. [facility] overnight Hospitalist Physical - Constitutional Vitals: Temp Pulse Resp BP Pulse Ox 98.4 F 99 H 10 L 150/104 96 04/02/21 08:00 04/02/21 10:37 04/02/21 10:10 04/02/21 10:37 04/02/21 10:10 General appearance: Present: no acute distress, severe distress - EENT Eyes: Present: PERRL ENT: hearing intact, clear oral mucosa - Neck Neck: Present: normal ROM - Respiratory Respiratory effort: normal Respiratory: bilateral: diminished - Cardiovascular Rhythm: regular Heart Sounds: Present: S1 & S2 - Extremities Extremities: no ischemia, pulses intact, pulses symmetrical Peripheral Pulses: within normal limits - Abdominal General gastrointestinal: soft, non-tender, normal bowel sounds - Integumentary Integumentary: Present: clear, warm, dry - Psychiatric Psychiatric: appropriate mood/affect, cooperative - Neurologic Neurologic: CNII-XII intact, moves all extremities - Allied Health Allied health notes reviewed: nursing HEART Score - HEART Score Troponin: Troponin T < 0.010 ng/mL (0.00-0.029) 04/01/21 15:34 Results - Labs CBC & Chem 7: 04/01/21 15:34 04/02/21 18:30 Labs: Laboratory Last Values WBC 20.4 K/mm3 (4.5-11.0) H 04/01/21 15:34 RBC 6.88 M/mm3 (3.65-5.03) H 04/01/21 15:34 Hgb 16.4 gm/dl (11.8-15.2) H 04/01/21 15:34 Hct 56.3 % (35.5-45.6) H 04/01/21 15:34 MCV 82 fl (84-94) L 04/01/21 15:34 MCH 24 pg (28-32) L 04/01/21 15:34 MCHC 29 % (32-34) L 04/01/21 15:34 RDW 20.3 % (13.2-15.2) H 04/01/21 15:34 Plt Count 860 K/mm3 (140-440) H 04/01/21 15:34 Lymph # (Auto) Tape Deck Installer 04/01/21 15:34 Add Manual Diff Complete 04/01/21 15:34 Total Counted 100 04/01/21 15:34 Seg Neuts % (Manual) 53.0 % (40.0-70.0) 04/01/21 15:34 Band Neutrophils % 4.0 % 04/01/21 15:34 Lymphocytes % (Manual) 34.0 % (13.4-35.0) 04/01/21 15:34 Reactive Lymphs % (Man) 5.0 % 04/01/21 15:34 Monocytes % (Manual) 3.0 % (0.0-7.3) 04/01/21 15:34 Blast Cells % 1.0 % 04/01/21 15:34 Nucleated RBC % Not Reportable 04/01/21 15:34 Seg Neutrophils # Man 10.8 K/mm3 (1.8-7.7) H 04/01/21 15:34 Band Neutrophils # 0.8 K/mm3 04/01/21 15:34 Lymphocytes # (Manual) 6.9 K/mm3 (1.2-5.4) H 04/01/21 15:34 Abs React Lymphs (Man) 1.0 K/mm3 04/01/21 15:34 Monocytes # (Manual) 0.6 K/mm3 (0.0-0.8) 04/01/21 15:34 Eosinophils # (Manual) 0.0 K/mm3 (0.0-0.4) 04/01/21 15:34 Basophils # (Manual) 0.0 K/mm3 (0.0-0.1) 04/01/21 15:34 Metamyelocytes # 0.0 K/mm3 04/01/21 15:34 Myelocytes # 0.0 K/mm3 04/01/21 15:34 Promyelocytes # 0.0 K/mm3 04/01/21 15:34 Blast Cells # 0.4 K/mm3 04/01/21 15:34 WBC Morphology Not Reportable 04/01/21 15:34 Hypersegmented Neuts Not Reportable 04/01/21 15:34 Hyposegmented Neuts Not Reportable 04/01/21 15:34 Hypogranular Neuts Not Reportable 04/01/21 15:34 Smudge Cells Not Reportable 04/01/21 15:34 Toxic Granulation Not Reportable 04/01/21 15:34 Toxic Vacuolation Not Reportable 04/01/21 15:34 Dohle Bodies Not Reportable 04/01/21 15:34 Pelger-Huet Anomaly Not Reportable 04/01/21 15:34 Brinda Rods Not Reportable 04/01/21 15:34 Platelet Estimate Consistent w auto 04/01/21 15:34 Clumped Platelets Not Reportable 04/01/21 15:34 Plt Clumps, EDTA Not Reportable 04/01/21 15:34 Large Platelets Not Reportable 04/01/21 15:34 Giant Platelets Not Reportable 04/01/21 15:34 Platelet Satelliting Not Reportable 04/01/21 15:34 Plt Morphology Comment Not Reportable 04/01/21 15:34 RBC Morphology Not Reportable 04/01/21 15:34 Dimorphic RBCs Not Reportable 04/01/21 15:34 Polychromasia Not Reportable 04/01/21 15:34 Hypochromasia 1+ 04/01/21 15:34 Poikilocytosis Not Reportable 04/01/21 15:34 Anisocytosis 1+ 04/01/21 15:34 Microcytosis Not Reportable 04/01/21 15:34 Macrocytosis Not Reportable 04/01/21 15:34 Spherocytes Not Reportable 04/01/21 15:34 Pappenheimer Bodies Not Reportable 04/01/21 15:34 Sickle Cells Not Reportable 04/01/21 15:34 Target Cells Not Reportable 04/01/21 15:34 Tear Drop Cells Not Reportable 04/01/21 15:34 Ovalocytes Not Reportable 04/01/21 15:34 Helmet Cells Not Reportable 04/01/21 15:34 Alvarez-Petoskey Bodies Not Reportable 04/01/21 15:34 [place] Rings Not Reportable 04/01/21 15:34 [place] Cells Not Reportable 04/01/21 15:34 Bite Cells Not Reportable 04/01/21 15:34 Crenated Cell Not Reportable 04/01/21 15:34 Elliptocytes Not Reportable 04/01/21 15:34 Acanthocytes (Spur) Not Reportable 04/01/21 15:34 Rouleaux Not Reportable 04/01/21 15:34 Hemoglobin C Crystals Not Reportable 04/01/21 15:34 Schistocytes Not Reportable 04/01/21 15:34 Malaria parasites Not Reportable 04/01/21 15:34 Facundo Bodies Not Reportable 04/01/21 15:34 Hem Pathologist Commnt No 04/01/21 15:34 PT 13.9 Sec. (12.2-14.9) 04/01/21 15:34 INR 0.96 (0.87-1.13) 04/01/21 15:34 APTT 26.1 Sec. (24.2-36.6) 04/01/21 15:34 D-Dimer 287.60 ng/mlDDU (0-234) H 04/01/21 17:51 VBG pH 7.102 (7.320-7.420) L* 04/01/21 15:34 Sodium 138 mmol/L (137-145) 04/02/21 03:59 Potassium 4.2 mmol/L (3.6-5.0) 04/02/21 03:59 Chloride 107.7 mmol/L (98-107) H 04/02/21 03:59 Carbon Dioxide 20 mmol/L (22-30) L 04/02/21 03:59 Anion Gap 15 mmol/L 04/02/21 03:59 BUN 11 mg/dL (9-20) 04/02/21 03:59 Creatinine 0.9 mg/dL (0.8-1.3) 04/02/21 03:59 Estimated GFR > 60 ml/min 04/02/21 03:59 BUN/Creatinine Ratio 12 % 04/02/21 03:59 Glucose 230 mg/dL (75-100) H 04/02/21 03:59 POC Glucose 241 mg/dL (70-105) H 04/02/21 11:36 Lactic Acid 1.10 mmol/L (0.7-2.0) 04/01/21 23:06 Calcium 8.5 mg/dL (8.4-10.2) 04/02/21 03:59 Phosphorus 3.00 mg/dL (2.5-4.5) 04/01/21 17:51 Magnesium 2.00 mg/dL (1.7-2.3) 04/01/21 17:51 Total Bilirubin 0.20 mg/dL (0.1-1.2) 04/01/21 15:34 Direct Bilirubin < 0.2 mg/dL (0-0.2) 04/01/21 15:34 Indirect Bilirubin 0.0 mg/dL 04/01/21 15:34 AST 26 units/L (5-40) 04/01/21 15:34 ALT 29 units/L (7-56) 04/01/21 15:34 Alkaline Phosphatase 163 units/L (35-129) H 04/01/21 15:34 Ammonia 98.0 umol/L (25-60) H 04/01/21 15:34 Lactate Dehydrogenase 462 units/L (91-180) H 04/01/21 17:51 Troponin T < 0.010 ng/mL (0.00-0.029) 04/01/21 15:34 C-Reactive Protein 0.10 mg/dL (0.00-1.30) 04/01/21 17:51 NT-Pro-B Natriuret Pep 101.8 pg/mL (0-450) 04/01/21 15:34 Total Protein 8.1 g/dL (6.3-8.2) 04/01/21 15:34 Albumin 4.4 g/dL (3.9-5) 04/01/21 15:34 Albumin/Globulin Ratio 1.2 % 04/01/21 15:34 Lipase 32 units/L (13-60) 04/01/21 15:34 Procalcitonin 0.08 ng/mL (<0.15) 04/01/21 17:51 TSH 1.990 mlU/mL (0.270-4.200) 04/01/21 15:34 Urine Color Straw (Yellow) 04/01/21 17:56 Urine Turbidity Clear (Clear) 04/01/21 17:56 Urine pH 5.0 (5.0-7.0) 04/01/21 17:56 Ur Specific [place] 1.024 (1.003-1.030) 04/01/21 17:56 Urine Protein 100 mg/dl mg/dL (Negative) 04/01/21 17:56 Urine Glucose (UA) >=500 mg/dL (Negative) 04/01/21 17:56 Urine Ketones Tr mg/dL (Negative) 04/01/21 17:56 Urine Blood Neg (Negative) 04/01/21 17:56 Urine Nitrite Neg (Negative) 04/01/21 17:56 Urine Bilirubin Neg (Negative) 04/01/21 17:56 Urine Urobilinogen < 2.0 mg/dL (<2.0) 04/01/21 17:56 Ur Leukocyte Esterase Neg (Negative) 04/01/21 17:56 Urine WBC (Auto) 1.0 /HPF (0.0-6.0) 04/01/21 17:56 Urine RBC (Auto) 4.0 /HPF (0.0-6.0) 04/01/21 17:56 Urine Mucus Few /HPF 04/01/21 17:56 Salicylates < 0.3 mg/dL (2.8-20.0) L 04/01/21 15:34 Urine Opiates Screen Negative 04/01/21 17:56 Urine Methadone Screen Negative 04/01/21 17:56 Acetaminophen 5.0 ug/mL (10.0-30.0) L 04/01/21 15:34 Ur Barbiturates Screen Negative 04/01/21 17:56 Ur Phencyclidine Scrn Negative 04/01/21 17:56 Ur Amphetamines Screen Negative 04/01/21 17:56 U Benzodiazepines Scrn Negative 04/01/21 17:56 Urine Cocaine Screen Negative 04/01/21 17:56 U Marijuana (THC) Screen Positive 04/01/21 17:56 Drugs of Abuse Note Disclamer 04/01/21 17:56 Plasma/Serum Alcohol < 0.01 % (0-0.07) 04/01/21 15:34 Microbiology: Microbiology 04/01/21 15:34 Peripheral/Venous Blood Culture - Preliminary Culture in Progress 04/01/21 15:34 Peripheral/Venous Blood Culture - Preliminary Culture in Progress Mcgill/IV: Voiding Method Urinal Active Medications - Current Medications Current Medications: Generic Name Dose Route Start Last Admin Trade Name Freq PRN Reason Stop Dose Admin Acetaminophen 650 mg 04/01/21 16:55 Acetaminophen 325 Mg Tab PO Q6H PRN Pain MILD(1-3)/Fever >100.5/BARTH Albuterol 2.5 mg 04/01/21 16:55 Albuterol 2.5 Mg/3 Ml Nebu IH Q3HRT PRN Shortness Of Breath Amlodipine Besylate 5 mg 04/02/21 11:00 04/02/21 10:37 Amlodipine 5 Mg Tab PO 5 mg QDAY DUY Administration Ascorbic Acid 500 mg 04/01/21 22:00 04/02/21 10:34 Ascorbic Acid 500 Mg Tab PO 500 mg BID DUY Administration Cholecalciferol 1,000 unit 04/02/21 10:00 04/02/21 10:34 Cholecalciferol (Vit D3) 400 Unit Tab PO 1,000 unit QDAY DUY Administration Dextrose 0 ml 04/01/21 16:55 Dextrose 50% In Water (25gm) 50 Ml Syringe IV Q30MIN PRN Hypoglycemia Protocol Heparin Sodium (Porcine) 5,000 unit 04/01/21 22:00 04/02/21 10:34 Heparin 5,000 Unit/1 Ml Vial SUB-Q 5,000 unit Q12HR DUY Administration Hydromorphone HCl 0.25 mg 04/01/21 16:55 Hydromorphone 1 Mg/1 Ml Inj IV Q4H PRN Pain, Moderate (4-6) Hydromorphone HCl 0.5 mg 04/01/21 16:55 Hydromorphone 1 Mg/1 Ml Inj IV Q12H PRN Pain , Severe (7-10) Insulin Human Regular 100 100 mls @ 1 mls/hr 04/01/21 17:00 04/02/21 11:40 units/ Sodium Chloride IV Infused TITR DUY Titration Protocol 1 UNITS/HR Azithromycin 500 mg in 250 mls @ 250 mls/hr 04/01/21 17:00 04/01/21 20:02 Zithromax/Ns IV 04/05/21 17:59 250 mls/hr Q24H DUY Administration Protocol Potassium Chloride/Dextrose/Sod Cl 20 meq in 1,000 mls @ 125 mls/hr 04/01/21 21:00 04/02/21 05:45 D5w/0.45% Nacl/Kcl 20 Meq IV 125 mls/hr DIRECT DUY Administration Levetiracetam 500 mg 04/01/21 22:00 04/02/21 10:34 Levetiracetam 500 Mg/5 Ml Oral Liqd PO 500 mg BID DUY Administration Methylprednisolone Sodium Succinate 40 mg 04/01/21 22:00 04/02/21 05:42 Methylprednisolone Sod Succinate 40 Mg/1 Ml Inj IV 40 mg Q8HR DUY Administration Oxycodone/Acetaminophen 1 tab 04/01/21 16:55 Oxycodone /Acetaminophen 5-325mg Tab PO Q6H PRN Pain, Moderate (4-6) Sodium Bicarbonate 50 meq 04/01/21 20:00 04/02/21 08:26 Sodium Bicarb 8.4% 50 Meq/50 Ml Syringe IV 04/02/21 14:01 50 meq TID UDY Administration Sodium Chloride 10 ml 04/01/21 22:00 04/02/21 10:35 Sodium Chloride 0.9% 10 Ml Flush Syringe IV 10 ml BID DUY Administration Sodium Chloride 10 ml 04/01/21 16:55 04/02/21 05:41 Sodium Chloride 0.9% 10 Ml Flush Syringe IV 10 ml PRN PRN Administration LINE FLUSH Zinc Sulfate 220 mg 04/01/21 22:00 04/02/21 10:34 Zinc Sulfate 220 Mg Cap PO 220 mg BID DUY Administration Nutrition/Malnutrition Assess - Dietary Evaluation Nutrition/Malnutrition Findings: Nutrition Notes Start: 04/02/21 10:33 Freq: Status: Active Protocol: Document 04/02/21 10:33 CHARLETTE (Rec: 04/02/21 10:42 NHALL [id number]) Nutrition Notes Need for Assessment generated from: MD Order,Education Initial or Follow up Assessment Current Diagnosis Acute Kidney Injury,Diabetes, Sepsis,Hypertension Other Pertinent Diagnosis DKA, pneu, r/o COVID-19, status epilepticus, toxic metabolic encephalopathy Current Diet NPO Labs/Tests BG 578 upon admission POC Glu range: 129-555 Pertinent Medications Vit C, Vit D4, Zinc sulfate, Insulin gtt, Solumedrol, Na bicarb, D5 1/2NS + 20mEq KCl at 125ml/hr Height 6 ft Weight 119.3 kg [place] Body Weight (kg) 80.90 BMI 35.6 Weight Status Obese Subjective/Other Information RD consulted for diet education and NTR recommendations. Pt with hx of medication noncompliance. He is not appropriate for diet education at this time. Burn Absent Trauma Absent Minimum of two criteria No #1 Nutrition Diagnosis Inadequate oral intake Etiology DKA As Evidenced by Signs and Symptoms pt NPO and on insulin drip Is patient on ventilator? No Is Patient Ambulatory and/or Out of Bed No REE-([facility]-confined to bed) 2530.284 Kcal/Kg value to use for calculation 17 Approximate Energy Requirements Using 2027 kcal/Kg Calculation Used for Recommendations Kcal/kg Additional Notes Pro needs 2g/kg IBW: 162g/day Fluid needs 1ml/kcal Nutrition Intervention Change Diet Order: Diet advancement to Cardiac/ Consistent CHO when medically feasible Goal #1 Diet advancement to meet nutrient needs Goal #2 Improved BG control Goal #3 Adherence to CHO-controlled diet Anticipated Discharge Needs: Heart-healthy/CHO-controlled diet Follow-Up By: 04/06/21 Additional Comments F/U: diet advancement, diet education needs (DM and low sodium)
[2021-04-02] MEDS: INSULIN REGULAR, HUMAN 100 UNITS in SODIUM CHLORIDE 0.9% 99 ML IV SCH (12:08)
[2021-04-02 14:26] LABS: BUN/Creatinine Ratio 10; Blood Urea Nitrogen 9 mg/dL (9-20); Calcium 8.6 mg/dL (8.4-10.2); Hemolysis Index 5
[2021-04-02] MEDS ORDERED: SODIUM PHOSPHATE 15 MMOL in SODIUM CHLORIDE 0.9% 250ML 250 ML IV ONE (16:00)
[2021-04-02] MEDS: AZITHROMYCIN/NS 500 MG/250 ML 500 MG/250 ML BAG IV SCH (16:38)
[2021-04-02] MEDS ORDERED: DEXTROSE 50% IN WATER (25GM) 50 ML SYRINGE IV PRN (16:56)
[2021-04-02] MEDS: POTASSIUM CHLORIDE 10 MEQ 10 MEQ/100 ML BAG IV SCH (17:48)
[2021-04-02] MEDS ORDERED: MAGNESIUM SULFATE 2 GM/50 ML BAG IV ONE (18:00)
[2021-04-02] MEDS: INSULIN NPH/REGULAR 70/30 INJ SUB-Q SCH (18:07)
[2021-04-02] MEDS: hydrALAZINE 20 MG/1 ML INJ IV PRN ×2 (18:59→20:14)
[2021-04-02 19:38] LABS: BUN/Creatinine Ratio 10; Blood Urea Nitrogen 9 mg/dL (9-20); Calcium 8.4 mg/dL (8.4-10.2); Hemolysis Index 13
[2021-04-02] MEDS ORDERED: cefTRIAXone/NS 2 GM/100 ML 2 GM/100 ML BAG IV SCH (21:00)
[2021-04-02] MEDS ORDERED: LIP THERAPY VASELINE TP ONE (21:16)
[2021-04-02] MEDS: FAMOTIDINE 10 MG TAB PO SCH (21:18)
[2021-04-02] MEDS: INSULIN LISPRO 100 UNIT/ML SUB-Q SCH (22:31)
[2021-04-03] MEDS: hydrALAZINE 20 MG/1 ML INJ IV PRN ×3 (01:24→14:09)
[2021-04-03 05:30] LABS: Mean Corpuscular HGB Conc 31 % (32-34); Mean Corpuscular Volume 75 fl (84-94); Platelet Count 682 K/mm3 (140-440); Red Blood Count 6.72 M/mm3 (3.65-5.03)
[2021-04-03 05:36] LABS: Hematocrit 50.5 % (35.5-45.6); Hemoglobin 15.5 gm/dl (11.8-15.2)
[2021-04-03] MEDS: oxyCODONE /ACETAMINOPHEN 5-325MG TAB PO PRN ×3 (05:41→18:53)
[2021-04-03 05:58] LABS: BUN/Creatinine Ratio 8; Blood Urea Nitrogen 7 mg/dL (9-20); Calcium 8.5 mg/dL (8.4-10.2); Hemolysis Index 25
[2021-04-03] MEDS: INSULIN NPH/REGULAR 70/30 INJ SUB-Q SCH ×2 (07:17→16:28)
[2021-04-03] MEDS: INSULIN LISPRO 100 UNIT/ML SUB-Q SCH ×3 (07:17→16:28)
[2021-04-03] MEDS ORDERED: MAGNESIUM SULFATE 2 GM/50 ML BAG IV ONE (08:30)
[2021-04-03] MEDS ORDERED: POTASSIUM CHLORIDE ER 20 MEQ TAB PO ONE (08:30)
[2021-04-03] MEDS: amLODIPine 5 MG TAB PO SCH (09:38)
[2021-04-03] MEDS: FAMOTIDINE 10 MG TAB PO SCH ×2 (09:38→22:16)
[2021-04-03] MEDS: levETIRAcetam 500 MG/5 ML ORAL LIQD PO SCH ×2 (09:39→22:16)
[2021-04-03] MEDS: ASCORBIC ACID 500 MG TAB PO SCH ×2 (09:39→22:16)
[2021-04-03] MEDS: CHOLECALCIFEROL (VIT D3) 400 UNIT TAB PO SCH (09:39)
[2021-04-03] MEDS: HEPARIN 5,000 UNIT/1 ML VIAL SUB-Q SCH ×2 (09:39→22:16)
[2021-04-03] MEDS: ZINC SULFATE 220 MG CAP PO SCH ×2 (09:39→22:16)
--- NOTE | 2021-04-03 11:01 | Progress Note ---
Assessment and Plan Assessment and plan: This is a 46-year-old male with known past medical history of DM and HTN, noncompliant with meds who was admitted for seizur, DKA, and sepsis Hospital Course to Date: 04/02/21- Patient is fully AAO, RA, no signs of any acute distress. Remains on DKA protocol, gap is closed plan to transition to SubQ insulin.. No more seizure like activities reported, EEG ispending, and Neuro is consulted. Patient has been hypertensive overnight, per patient he lost his job and insurance recently and has not been able to refill his medications. He reported that he was taking Norvasc for high blood pressure, but did not report what he was taking for his DM. Will start patient back on Norvasc Qday with some PRN Hydralazine. And case management consulted for possible medications assistance. Patient is stable for transfer to the floor once he is off the insulin gtt. 04/03/21- Patient transitioned to SubQ insulin overnight. Still hypertensive, per patient he was taking 10mg of Norvasc at home, antihypertensive adjusted to home dose. EEG and Neuro recommendation pending. Will order MRI brain for now. Continue IV Keppra Q12hrs. Electrolytes repleted, repeat in the am. Patient is stable for transfer to the floor Assessment and Plan #Status Epilepticus - Presented with witnessed seizure - CT head with no acute intracranial abnormality - Was loaded with Keppra in the ED - EEG is pending - MRI Brain ordered - Continue Keppra BID - PRN Benzo for seizures like activity - Avoid Delirium - Maintain regular sleep cycle - Neurology consulted #Hypertension - Patient has a history of HTN - Recently lost his job, unable to afford them at this - Per patient he was taking Norvasc at some point - Norvasc increased to 10mg Qday - PRN Hydralazine for SBP greater than 160 - Maintain adequate perfusion - Continue to monitor blood pressure per protocol #??Bilateral Pneumonia - Initial CXR with no acute findings - Presented with diminished cognition intially required O2 supplement - Remains on RA, SPO2 94 to 97% - COVID swab negative - IV steroids D/Yahir - 2L O2 supplement on standby at the bedside - Continue SPO2 monitoring for a SPO2 goal above 92% - CCM to follow #GI:NAP - Off insulin gtt - Patient tolerating diet - Continue PPI-Pepcid #Acute kidney injury (LAY) with acute tubular necrosis (ATN) #Hypokalemia #Hyponatremia- improved - Patient's baseline is unknown - SCr. as high as 1.5 on admit - Probably related to dehydration/DKA - SCr. improved with IV rehydration, Scr. 0.9 this am - Strict intake and output - Avoid nephrotoxic medications; Renally dose medications - Monitor and replace electrolytes as needed - Trend BMP #Sepsis #Leukocytosis-improved #Lactic Acidosis- resolved #??Bilateral Pneumonia - Patient presented obtunded, with leukocytosis and tachycardia - Most likely related to DKA and dehydration - WBCs as high as 20.4, downtrending 11.1 this am - Lactic acid as high as 2.90, improved with IV hydration to 1.10 - Initial CXR with no acute findings - Patient remains afebrile - UA +ketones, glucose, & protein, otherwise unremarkable - Blood Culture and Urine pending - COVID swab negative - CRP normal, Procal pending - Continue Empiric IV Abx X1 more dauy - Daily CBC monitor - F/u on culture data - Consider ID consult if febrile or if leukocytosis worsen #Hyperglycemia #DKA (diabetic ketoacidosis) #Uncontrolled DM - A1c 12.9 - No longer on DKA protocol - Transitioned to SubQ insulin overnight - Continue SSI ACHS and Basal 70/30 BID - Avoid Hypoglycemia #DVT prophylaxis - Continue AC- Heparin SubQ - SCDs bilateral lower extremities while in bed The high probability of a clinically significant, sudden or life threatening deterioration of the [multiple] system(s) required my full and direct attention, intervention and personal management. The aggregate critical care time was [60] minutes. This time is in addition to time spent performing reported procedures but includes the following: [x] Data Review and interpretation [x] Patient assessment and monitoring of vital signs [x] Documentation [x] Medication orders and management Disposition Plan: ICU Total Time Spent with Patient (Minutes): 60 History Interval history: Patient is seen and examined at the bedside. Fully AAO, on RA,denied any pain nor any discomfort. Transitioned to SubQ insulin overnight. FABIOLA overnight Hospitalist Physical - Constitutional Vitals: Temp Pulse Resp BP Pulse Ox 98.9 F 110 H 12 149/110 61 L 04/03/21 07:13 04/03/21 10:30 04/03/21 10:30 04/03/21 10:30 04/03/21 10:10 General appearance: Present: no acute distress, severe distress - EENT Eyes: Present: PERRL ENT: hearing intact, clear oral mucosa - Neck Neck: Present: normal ROM - Respiratory Respiratory effort: normal Respiratory: bilateral: diminished - Cardiovascular Rhythm: regular Heart Sounds: Present: S1 & S2 - Extremities Extremities: no ischemia, pulses intact, pulses symmetrical Peripheral Pulses: within normal limits - Abdominal General gastrointestinal: soft, non-tender, normal bowel sounds - Integumentary Integumentary: Present: clear, warm, dry - Psychiatric Psychiatric: appropriate mood/affect, cooperative - Neurologic Neurologic: CNII-XII intact, moves all extremities - Allied Health Allied health notes reviewed: nursing HEART Score - HEART Score Troponin: Troponin T < 0.010 ng/mL (0.00-0.029) 04/01/21 15:34 Results - Labs CBC & Chem 7: 04/03/21 04:36 04/03/21 04:36 Labs: Laboratory Last Values WBC 11.1 K/mm3 (4.5-11.0) H 04/03/21 04:36 RBC 6.72 M/mm3 (3.65-5.03) H 04/03/21 04:36 Hgb 15.5 gm/dl (11.8-15.2) H 04/03/21 04:36 Hct 50.5 % (35.5-45.6) H 04/03/21 04:36 MCV 75 fl (84-94) L 04/03/21 04:36 MCH 23 pg (28-32) L 04/03/21 04:36 MCHC 31 % (32-34) L 04/03/21 04:36 RDW 20.0 % (13.2-15.2) H 04/03/21 04:36 Plt Count 682 K/mm3 (140-440) H 04/03/21 04:36 Lymph # (Auto) Collaborative Teacher 04/01/21 15:34 Add Manual Diff Complete 04/01/21 15:34 Total Counted 100 04/01/21 15:34 Seg Neuts % (Manual) 53.0 % (40.0-70.0) 04/01/21 15:34 Band Neutrophils % 4.0 % 04/01/21 15:34 Lymphocytes % (Manual) 34.0 % (13.4-35.0) 04/01/21 15:34 Reactive Lymphs % (Man) 5.0 % 04/01/21 15:34 Monocytes % (Manual) 3.0 % (0.0-7.3) 04/01/21 15:34 Blast Cells % 1.0 % 04/01/21 15:34 Nucleated RBC % Not Reportable 04/01/21 15:34 Seg Neutrophils # Man 10.8 K/mm3 (1.8-7.7) H 04/01/21 15:34 Band Neutrophils # 0.8 K/mm3 04/01/21 15:34 Lymphocytes # (Manual) 6.9 K/mm3 (1.2-5.4) H 04/01/21 15:34 Abs React Lymphs (Man) 1.0 K/mm3 04/01/21 15:34 Monocytes # (Manual) 0.6 K/mm3 (0.0-0.8) 04/01/21 15:34 Eosinophils # (Manual) 0.0 K/mm3 (0.0-0.4) 04/01/21 15:34 Basophils # (Manual) 0.0 K/mm3 (0.0-0.1) 04/01/21 15:34 Metamyelocytes # 0.0 K/mm3 04/01/21 15:34 Myelocytes # 0.0 K/mm3 04/01/21 15:34 Promyelocytes # 0.0 K/mm3 04/01/21 15:34 Blast Cells # 0.4 K/mm3 04/01/21 15:34 WBC Morphology Not Reportable 04/01/21 15:34 Hypersegmented Neuts Not Reportable 04/01/21 15:34 Hyposegmented Neuts Not Reportable 04/01/21 15:34 Hypogranular Neuts Not Reportable 04/01/21 15:34 Smudge Cells Not Reportable 04/01/21 15:34 Toxic Granulation Not Reportable 04/01/21 15:34 Toxic Vacuolation Not Reportable 04/01/21 15:34 Dohle Bodies Not Reportable 04/01/21 15:34 Pelger-Huet Anomaly Not Reportable 04/01/21 15:34 Brinda Rods Not Reportable 04/01/21 15:34 Platelet Estimate Consistent w auto 04/01/21 15:34 Clumped Platelets Not Reportable 04/01/21 15:34 Plt Clumps, EDTA Not Reportable 04/01/21 15:34 Large Platelets Not Reportable 04/01/21 15:34 Giant Platelets Not Reportable 04/01/21 15:34 Platelet Satelliting Not Reportable 04/01/21 15:34 Plt Morphology Comment Not Reportable 04/01/21 15:34 RBC Morphology Not Reportable 04/01/21 15:34 Dimorphic RBCs Not Reportable 04/01/21 15:34 Polychromasia Not Reportable 04/01/21 15:34 Hypochromasia 1+ 04/01/21 15:34 Poikilocytosis Not Reportable 04/01/21 15:34 Anisocytosis 1+ 04/01/21 15:34 Microcytosis Not Reportable 04/01/21 15:34 Macrocytosis Not Reportable 04/01/21 15:34 Spherocytes Not Reportable 04/01/21 15:34 Pappenheimer Bodies Not Reportable 04/01/21 15:34 Sickle Cells Not Reportable 04/01/21 15:34 Target Cells Not Reportable 04/01/21 15:34 Tear Drop Cells Not Reportable 04/01/21 15:34 Ovalocytes Not Reportable 04/01/21 15:34 Helmet Cells Not Reportable 04/01/21 15:34 [place] Bodies Not Reportable 04/01/21 15:34 [place] Rings Not Reportable 04/01/21 15:34 [place] Cells Not Reportable 04/01/21 15:34 Bite Cells Not Reportable 04/01/21 15:34 Crenated Cell Not Reportable 04/01/21 15:34 Elliptocytes Not Reportable 04/01/21 15:34 Acanthocytes (Spur) Not Reportable 04/01/21 15:34 Rouleaux Not Reportable 04/01/21 15:34 Hemoglobin C Crystals Not Reportable 04/01/21 15:34 Schistocytes Not Reportable 04/01/21 15:34 Malaria parasites Not Reportable 04/01/21 15:34 Facundo Bodies Not Reportable 04/01/21 15:34 Hem Pathologist Commnt No 04/01/21 15:34 PT 13.9 Sec. (12.2-14.9) 04/01/21 15:34 INR 0.96 (0.87-1.13) 04/01/21 15:34 APTT 26.1 Sec. (24.2-36.6) 04/01/21 15:34 D-Dimer 287.60 ng/mlDDU (0-234) H 04/01/21 17:51 VBG pH 7.102 (7.320-7.420) L* 04/01/21 15:34 Sodium 137 mmol/L (137-145) 04/03/21 04:36 Potassium 3.5 mmol/L (3.6-5.0) L 04/03/21 04:36 Chloride 101.9 mmol/L (98-107) 04/03/21 04:36 Carbon Dioxide 23 mmol/L (22-30) 04/03/21 04:36 Anion Gap 16 mmol/L 04/03/21 04:36 BUN 7 mg/dL (9-20) L 04/03/21 04:36 Creatinine 0.9 mg/dL (0.8-1.3) 04/03/21 04:36 Estimated GFR > 60 ml/min 04/03/21 04:36 BUN/Creatinine Ratio 8 % 04/03/21 04:36 Glucose 189 mg/dL (75-100) H 04/03/21 04:36 POC Glucose 215 mg/dL (70-105) H 04/03/21 07:07 Hemoglobin A1c 12.9 % (4-6) H 04/03/21 04:36 Lactic Acid 1.10 mmol/L (0.7-2.0) 04/01/21 23:06 Calcium 8.5 mg/dL (8.4-10.2) 04/03/21 04:36 Phosphorus 3.00 mg/dL (2.5-4.5) 04/03/21 04:36 Magnesium 1.70 mg/dL (1.7-2.3) 04/03/21 04:36 Total Bilirubin 0.20 mg/dL (0.1-1.2) 04/01/21 15:34 Direct Bilirubin < 0.2 mg/dL (0-0.2) 04/01/21 15:34 Indirect Bilirubin 0.0 mg/dL 04/01/21 15:34 AST 26 units/L (5-40) 04/01/21 15:34 ALT 29 units/L (7-56) 04/01/21 15:34 Alkaline Phosphatase 163 units/L (35-129) H 04/01/21 15:34 Ammonia 98.0 umol/L (25-60) H 04/01/21 15:34 Lactate Dehydrogenase 462 units/L (91-180) H 04/01/21 17:51 Troponin T < 0.010 ng/mL (0.00-0.029) 04/01/21 15:34 C-Reactive Protein 0.10 mg/dL (0.00-1.30) 04/01/21 17:51 NT-Pro-B Natriuret Pep 101.8 pg/mL (0-450) 04/01/21 15:34 Total Protein 8.1 g/dL (6.3-8.2) 04/01/21 15:34 Albumin 4.4 g/dL (3.9-5) 04/01/21 15:34 Albumin/Globulin Ratio 1.2 % 04/01/21 15:34 Lipase 32 units/L (13-60) 04/01/21 15:34 Procalcitonin < 0.05 ng/mL (<0.15) 04/02/21 13:31 TSH 1.990 mlU/mL (0.270-4.200) 04/01/21 15:34 Urine Color Straw (Yellow) 04/01/21 17:56 Urine Turbidity Clear (Clear) 04/01/21 17:56 Urine pH 5.0 (5.0-7.0) 04/01/21 17:56 Ur Specific [place] 1.024 (1.003-1.030) 04/01/21 17:56 Urine Protein 100 mg/dl mg/dL (Negative) 04/01/21 17:56 Urine Glucose (UA) >=500 mg/dL (Negative) 04/01/21 17:56 Urine Ketones Tr mg/dL (Negative) 04/01/21 17:56 Urine Blood Neg (Negative) 04/01/21 17:56 Urine Nitrite Neg (Negative) 04/01/21 17:56 Urine Bilirubin Neg (Negative) 04/01/21 17:56 Urine Urobilinogen < 2.0 mg/dL (<2.0) 04/01/21 17:56 Ur Leukocyte Esterase Neg (Negative) 04/01/21 17:56 Urine WBC (Auto) 1.0 /HPF (0.0-6.0) 04/01/21 17:56 Urine RBC (Auto) 4.0 /HPF (0.0-6.0) 04/01/21 17:56 Urine Mucus Few /HPF 04/01/21 17:56 Salicylates < 0.3 mg/dL (2.8-20.0) L 04/01/21 15:34 Urine Opiates Screen Negative 04/01/21 17:56 Urine Methadone Screen Negative 04/01/21 17:56 Acetaminophen 5.0 ug/mL (10.0-30.0) L 04/01/21 15:34 Ur Barbiturates Screen Negative 04/01/21 17:56 Ur Phencyclidine Scrn Negative 04/01/21 17:56 Ur Amphetamines Screen Negative 04/01/21 17:56 U Benzodiazepines Scrn Negative 04/01/21 17:56 Urine Cocaine Screen Negative 04/01/21 17:56 U Marijuana (THC) Screen Positive 04/01/21 17:56 Drugs of Abuse Note Disclamer 04/01/21 17:56 Plasma/Serum Alcohol < 0.01 % (0-0.07) 04/01/21 15:34 Coronavirus (PCR) Negative (Negative) 04/02/21 08:24 Microbiology: Microbiology 04/01/21 15:34 Peripheral/Venous Blood Culture - Preliminary NO GROWTH AFTER 24 HOURS 04/01/21 15:34 Peripheral/Venous Blood Culture - Preliminary NO GROWTH AFTER 24 HOURS Mcgill/IV: Voiding Method Urinal Active Medications - Current Medications Current Medications: Generic Name Dose Route Start Last Admin Trade Name Freq PRN Reason Stop Dose Admin Acetaminophen 650 mg 04/01/21 16:55 Acetaminophen 325 Mg Tab PO Q6H PRN Pain MILD(1-3)/Fever >100.5/BARTH Albuterol 2.5 mg 04/01/21 16:55 Albuterol 2.5 Mg/3 Ml Nebu IH Q3HRT PRN Shortness Of Breath Amlodipine Besylate 10 mg 04/03/21 10:00 04/03/21 09:38 Amlodipine 5 Mg Tab PO 10 mg QDAY DUY Administration Ascorbic Acid 500 mg 04/01/21 22:00 04/03/21 09:39 Ascorbic Acid 500 Mg Tab PO 500 mg BID DUY Administration Cholecalciferol 1,000 unit 04/02/21 10:00 04/03/21 09:39 Cholecalciferol (Vit D3) 400 Unit Tab PO 1,000 unit QDAY DUY Administration Dextrose 50 ml 04/02/21 16:56 Dextrose 50% In Water (25gm) 50 Ml Syringe IV Q30MIN PRN Hypoglycemia Protocol Famotidine 10 mg 04/02/21 22:00 04/03/21 09:38 Famotidine 10 Mg Tab PO 10 mg BID DUY Administration Heparin Sodium (Porcine) 5,000 unit 04/01/21 22:00 04/03/21 09:39 Heparin 5,000 Unit/1 Ml Vial SUB-Q 5,000 unit Q12HR DUY Administration Hydralazine HCl 10 mg 04/02/21 12:00 04/03/21 05:54 Hydralazine 20 Mg/1 Ml Inj IV 10 mg Q4H PRN Administration Hypertension Hydromorphone HCl 0.25 mg 04/01/21 16:55 Hydromorphone 1 Mg/1 Ml Inj IV Q4H PRN Pain, Moderate (4-6) Hydromorphone HCl 0.5 mg 04/01/21 16:55 04/03/21 10:12 Hydromorphone 1 Mg/1 Ml Inj IV 0.5 mg Q12H PRN Administration Pain , Severe (7-10) Azithromycin 500 mg in 250 mls @ 250 mls/hr 04/01/21 17:00 04/02/21 16:38 Zithromax/Ns IV 04/03/21 17:59 250 mls/hr Q24H DUY Administration Protocol Ceftriaxone Sodium 2 gm in 100 mls @ 200 mls/hr 04/02/21 21:00 04/02/21 21:19 Rocephin/Ns 2 Gm/100 Ml IV 04/03/21 20:59 200 mls/hr Q24H DUY Administration Protocol Insulin Human Isoph/Insulin Regular 40 unit 04/02/21 18:00 04/03/21 07:17 Insulin Nph/Regular 70/30 Inj SUB-Q 40 unit BIDDIAB DUY Administration Insulin Human Lispro 0 unit 04/02/21 22:00 04/03/21 07:17 Insulin Lispro 100 Unit/Ml SUB-Q 3 unit ACHS DUY Administration Protocol Levetiracetam 500 mg 04/01/21 22:00 04/03/21 09:39 Levetiracetam 500 Mg/5 Ml Oral Liqd PO 500 mg BID DUY Administration Oxycodone/Acetaminophen 1 tab 04/01/21 16:55 04/03/21 05:41 Oxycodone /Acetaminophen 5-325mg Tab PO 1 tab Q6H PRN Administration Pain, Moderate (4-6) Sodium Chloride 10 ml 04/01/21 22:00 04/03/21 09:39 Sodium Chloride 0.9% 10 Ml Flush Syringe IV 10 ml BID DUY Administration Sodium Chloride 10 ml 04/01/21 16:55 04/02/21 05:41 Sodium Chloride 0.9% 10 Ml Flush Syringe IV 10 ml PRN PRN Administration LINE FLUSH Zinc Sulfate 220 mg 04/01/21 22:00 04/03/21 09:39 Zinc Sulfate 220 Mg Cap PO 220 mg BID DUY Administration Nutrition/Malnutrition Assess - Dietary Evaluation Nutrition/Malnutrition Findings: Nutrition Notes Start: 04/02/21 10:33 Freq: Status: Active Protocol: Document 04/02/21 10:33 CHARLETTE (Rec: 04/02/21 10:42 CHARLETTE [id number]) Nutrition Notes Need for Assessment generated from: MD Order,Education Initial or Follow up Assessment Current Diagnosis Acute Kidney Injury,Diabetes, Sepsis,Hypertension Other Pertinent Diagnosis DKA, pneu, r/o COVID-19, status epilepticus, toxic metabolic encephalopathy Current Diet NPO Labs/Tests BG 578 upon admission POC Glu range: 129-555 Pertinent Medications Vit C, Vit D4, Zinc sulfate, Insulin gtt, Solumedrol, Na bicarb, D5 1/2NS + 20mEq KCl at 125ml/hr Height 6 ft Weight 119.3 kg [place] Body Weight (kg) 80.90 BMI 35.6 Weight Status Obese Subjective/Other Information RD consulted for diet education and NTR recommendations. Pt with hx of medication noncompliance. He is not appropriate for diet education at this time. Burn Absent Trauma Absent Minimum of two criteria No #1 Nutrition Diagnosis Inadequate oral intake Etiology DKA As Evidenced by Signs and Symptoms pt NPO and on insulin drip Is patient on ventilator? No Is Patient Ambulatory and/or Out of Bed No REE-([place]-confined to bed) 2530.284 Kcal/Kg value to use for calculation 17 Approximate Energy Requirements Using 2027 kcal/Kg Calculation Used for Recommendations Kcal/kg Additional Notes Pro needs 2g/kg IBW: 162g/day Fluid needs 1ml/kcal Nutrition Intervention Change Diet Order: Diet advancement to Cardiac/ Consistent CHO when medically feasible Goal #1 Diet advancement to meet nutrient needs Goal #2 Improved BG control Goal #3 Adherence to CHO-controlled diet Anticipated Discharge Needs: Heart-healthy/CHO-controlled diet Follow-Up By: 04/06/21 Additional Comments F/U: diet advancement, diet education needs (DM and low sodium)
[2021-04-03] MEDS: AZITHROMYCIN/NS 500 MG/250 ML 500 MG/250 ML BAG IV SCH (16:28)
[2021-04-04] MEDS: ACETAMINOPHEN 325 MG TAB PO PRN ×2 (02:38→08:35)
[2021-04-04] MEDS: hydrALAZINE 20 MG/1 ML INJ IV PRN ×3 (05:04→13:03)
[2021-04-04 07:02] LABS: Mean Corpuscular HGB Conc 30 % (32-34); Mean Corpuscular Volume 76 fl (84-94); Platelet Count 684 K/mm3 (140-440); Red Blood Count 7.28 M/mm3 (3.65-5.03)
[2021-04-04 07:03] LABS: Hematocrit 55.2 % (35.5-45.6); Hemoglobin 16.4 gm/dl (11.8-15.2)
[2021-04-04 07:19] LABS: BUN/Creatinine Ratio 7; Blood Urea Nitrogen 6 mg/dL (9-20); Calcium 8.7 mg/dL (8.4-10.2); Hemolysis Index 3
[2021-04-04] MEDS: FAMOTIDINE 10 MG TAB PO SCH ×3 (08:35→22:02)
[2021-04-04] MEDS: levETIRAcetam 500 MG/5 ML ORAL LIQD PO SCH ×3 (08:35→22:01)
[2021-04-04] MEDS: amLODIPine 5 MG TAB PO SCH ×2 (08:35→11:13)
[2021-04-04] MEDS: ASCORBIC ACID 500 MG TAB PO SCH ×3 (08:35→22:01)
[2021-04-04] MEDS: ZINC SULFATE 220 MG CAP PO SCH ×3 (08:36→22:01)
[2021-04-04] MEDS: HEPARIN 5,000 UNIT/1 ML VIAL SUB-Q SCH ×3 (08:36→22:02)
[2021-04-04] MEDS: INSULIN LISPRO 100 UNIT/ML SUB-Q SCH ×5 (08:36→23:58)
--- NOTE | 2021-04-04 08:45 | Progress Note ---
Assessment and Plan Assessment and plan: This is a 46-year-old male with known past medical history of DM and HTN, noncompliant with meds who was admitted for seizur, DKA, and sepsis #Status Epilepticus - Presented with witnessed seizure - CT head with no acute intracranial abnormality - Was loaded with Keppra in the ED - EEG is pending - MRI Brain ordered - Continue Keppra BID - PRN Benzo for seizures like activity - Avoid Delirium - Maintain regular sleep cycle - Neurology consulted #Hypertension - Patient has a history of HTN - Recently lost his job, unable to afford them at this - Per patient he was taking Norvasc at some point - Norvasc increased to 10mg Qday - PRN Hydralazine for SBP greater than 160 - Maintain adequate perfusion - Continue to monitor blood pressure per protocol #??Bilateral Pneumonia - Initial CXR with no acute findings - Presented with diminished cognition intially required O2 supplement - Remains on RA, SPO2 94 to 97% - COVID swab negative - IV steroids D/Cd - 2L O2 supplement on standby at the bedside - Continue SPO2 monitoring for a SPO2 goal above 92% - CCM to follow #Acute kidney injury (LAY) with acute tubular necrosis (ATN) #Hypokalemia #Hyponatremia- improved - Patient's baseline is unknown - SCr. as high as 1.5 on admit - Probably related to dehydration/DKA - SCr. improved with IV rehydration, Scr. 0.9 this am - Strict intake and output - Avoid nephrotoxic medications; Renally dose medications - Monitor and replace electrolytes as needed - Trend BMP #Sepsis #Leukocytosis-improved #Lactic Acidosis- resolved #Hyperglycemia #DKA (diabetic ketoacidosis) #Uncontrolled DM - A1c 12.9 - No longer on DKA protocol - Transitioned to SubQ insulin overnight - Continue SSI ACHS and Basal 70/30 BID - Avoid Hypoglycemia #DVT prophylaxis - Continue AC- Heparin SubQ - SCDs bilateral lower extremities while in bed Hospital Course to Date: 04/02/21- Patient is fully AAO, RA, no signs of any acute distress. Remains on DKA protocol, gap is closed plan to transition to SubQ insulin.. No more seizure like activities reported, EEG ispending, and Neuro is consulted. Patient has been hypertensive overnight, per patient he lost his job and insurance recently and has not been able to refill his medications. He reported that he was taking Norvasc for high blood pressure, but did not report what he was taking for his DM. Will start patient back on Norvasc Qday with some PRN Hydralazine. And case management consulted for possible medications assistance. Patient is stable for transfer to the floor once he is off the insulin gtt. 04/03/21- Patient transitioned to SubQ insulin overnight. Still hypertensive, per patient he was taking 10mg of Norvasc at home, antihypertensive adjusted to home dose. EEG and Neuro recommendation pending. Will order MRI brain for now. Continue IV Keppra Q12hrs. Electrolytes repleted, repeat in the am. Patient is stable for transfer to the floor 04/04/2021-BG remains slightly elevated. We will increase insulin to 45 units twice daily. Patient also with accelerated hypertension. We will add labetalol 200 mg p.o. twice daily to the regimen. No new seizure activity over the past 48 hours. Continue Keppra 500 mg twice daily. Await MRI and EEG. Neurology following. History Interval history: No new issues overnight Hospitalist Physical - Constitutional Vitals: Temp Pulse Resp BP Pulse Ox 99.2 F 98 H 18 169/103 99 04/04/21 04:50 04/04/21 05:04 04/04/21 04:50 04/04/21 05:04 04/04/21 08:13 General appearance: Present: no acute distress, severe distress - EENT Eyes: Present: PERRL, EOM intact ENT: hearing intact, clear oral mucosa, dentition normal - Neck Neck: Present: supple, normal ROM - Respiratory Respiratory effort: normal Respiratory: bilateral: CTA - Cardiovascular Rhythm: regular Heart Sounds: Present: S1 & S2. Absent: gallop, rub - Extremities Extremities: no ischemia, No edema, Full ROM - Abdominal General gastrointestinal: soft, non-tender, non-distended, normal bowel sounds - Integumentary Integumentary: Present: clear, warm, dry - Neurologic Neurologic: CNII-XII intact, moves all extremities HEART Score - HEART Score Troponin: Troponin T < 0.010 ng/mL (0.00-0.029) 04/01/21 15:34 Results - Labs CBC & Chem 7: 04/04/21 05:34 04/04/21 05:34 Labs: Laboratory Last Values WBC 9.2 K/mm3 (4.5-11.0) 04/04/21 05:34 RBC 7.28 M/mm3 (3.65-5.03) H 04/04/21 05:34 Hgb 16.4 gm/dl (11.8-15.2) H 04/04/21 05:34 Hct 55.2 % (35.5-45.6) H 04/04/21 05:34 MCV 76 fl (84-94) L 04/04/21 05:34 MCH 23 pg (28-32) L 04/04/21 05:34 MCHC 30 % (32-34) L 04/04/21 05:34 RDW 20.0 % (13.2-15.2) H 04/04/21 05:34 Plt Count 684 K/mm3 (140-440) H 04/04/21 05:34 Lymph # (Auto) Past[place] Mixer 04/01/21 15:34 Add Manual Diff Complete 04/01/21 15:34 Total Counted 100 04/01/21 15:34 Seg Neuts % (Manual) 53.0 % (40.0-70.0) 04/01/21 15:34 Band Neutrophils % 4.0 % 04/01/21 15:34 Lymphocytes % (Manual) 34.0 % (13.4-35.0) 04/01/21 15:34 Reactive Lymphs % (Man) 5.0 % 04/01/21 15:34 Monocytes % (Manual) 3.0 % (0.0-7.3) 04/01/21 15:34 Blast Cells % 1.0 % 04/01/21 15:34 Nucleated RBC % Not Reportable 04/01/21 15:34 Seg Neutrophils # Man 10.8 K/mm3 (1.8-7.7) H 04/01/21 15:34 Band Neutrophils # 0.8 K/mm3 04/01/21 15:34 Lymphocytes # (Manual) 6.9 K/mm3 (1.2-5.4) H 04/01/21 15:34 Abs React Lymphs (Man) 1.0 K/mm3 04/01/21 15:34 Monocytes # (Manual) 0.6 K/mm3 (0.0-0.8) 04/01/21 15:34 Eosinophils # (Manual) 0.0 K/mm3 (0.0-0.4) 04/01/21 15:34 Basophils # (Manual) 0.0 K/mm3 (0.0-0.1) 04/01/21 15:34 Metamyelocytes # 0.0 K/mm3 04/01/21 15:34 Myelocytes # 0.0 K/mm3 04/01/21 15:34 Promyelocytes # 0.0 K/mm3 04/01/21 15:34 Blast Cells # 0.4 K/mm3 04/01/21 15:34 WBC Morphology Not Reportable 04/01/21 15:34 Hypersegmented Neuts Not Reportable 04/01/21 15:34 Hyposegmented Neuts Not Reportable 04/01/21 15:34 Hypogranular Neuts Not Reportable 04/01/21 15:34 Smudge Cells Not Reportable 04/01/21 15:34 Toxic Granulation Not Reportable 04/01/21 15:34 Toxic Vacuolation Not Reportable 04/01/21 15:34 Dohle Bodies Not Reportable 04/01/21 15:34 Pelger-Huet Anomaly Not Reportable 04/01/21 15:34 Brinda Rods Not Reportable 04/01/21 15:34 Platelet Estimate Consistent w auto 04/01/21 15:34 Clumped Platelets Not Reportable 04/01/21 15:34 Plt Clumps, EDTA Not Reportable 04/01/21 15:34 Large Platelets Not Reportable 04/01/21 15:34 Giant Platelets Not Reportable 04/01/21 15:34 Platelet Satelliting Not Reportable 04/01/21 15:34 Plt Morphology Comment Not Reportable 04/01/21 15:34 RBC Morphology Not Reportable 04/01/21 15:34 Dimorphic RBCs Not Reportable 04/01/21 15:34 Polychromasia Not Reportable 04/01/21 15:34 Hypochromasia 1+ 04/01/21 15:34 Poikilocytosis Not Reportable 04/01/21 15:34 Anisocytosis 1+ 04/01/21 15:34 Microcytosis Not Reportable 04/01/21 15:34 Macrocytosis Not Reportable 04/01/21 15:34 Spherocytes Not Reportable 04/01/21 15:34 Pappenheimer Bodies Not Reportable 04/01/21 15:34 Sickle Cells Not Reportable 04/01/21 15:34 Target Cells Not Reportable 04/01/21 15:34 Tear Drop Cells Not Reportable 04/01/21 15:34 Ovalocytes Not Reportable 04/01/21 15:34 Helmet Cells Not Reportable 04/01/21 15:34 [place] Bodies Not Reportable 04/01/21 15:34 [place] Rings Not Reportable 04/01/21 15:34 [place] Cells Not Reportable 04/01/21 15:34 Bite Cells Not Reportable 04/01/21 15:34 Crenated Cell Not Reportable 04/01/21 15:34 Elliptocytes Not Reportable 04/01/21 15:34 Acanthocytes (Spur) Not Reportable 04/01/21 15:34 Rouleaux Not Reportable 04/01/21 15:34 Hemoglobin C Crystals Not Reportable 04/01/21 15:34 Schistocytes Not Reportable 04/01/21 15:34 Malaria parasites Not Reportable 04/01/21 15:34 Facundo Bodies Not Reportable 04/01/21 15:34 Hem Pathologist Commnt No 04/01/21 15:34 PT 13.9 Sec. (12.2-14.9) 04/01/21 15:34 INR 0.96 (0.87-1.13) 04/01/21 15:34 APTT 26.1 Sec. (24.2-36.6) 04/01/21 15:34 D-Dimer 287.60 ng/mlDDU (0-234) H 04/01/21 17:51 VBG pH 7.102 (7.320-7.420) L* 04/01/21 15:34 Sodium 139 mmol/L (137-145) 04/04/21 05:34 Potassium 3.0 mmol/L (3.6-5.0) L 04/04/21 05:34 Chloride 100.7 mmol/L (98-107) 04/04/21 05:34 Carbon Dioxide 24 mmol/L (22-30) 04/04/21 05:34 Anion Gap 17 mmol/L 04/04/21 05:34 BUN 6 mg/dL (9-20) L 04/04/21 05:34 Creatinine 0.9 mg/dL (0.8-1.3) 04/04/21 05:34 Estimated GFR > 60 ml/min 04/04/21 05:34 BUN/Creatinine Ratio 7 % 04/04/21 05:34 Glucose 111 mg/dL (75-100) H 04/04/21 05:34 POC Glucose 204 mg/dL (70-105) H 04/04/21 07:20 Hemoglobin A1c 12.9 % (4-6) H 04/03/21 04:36 Lactic Acid 1.10 mmol/L (0.7-2.0) 04/01/21 23:06 Calcium 8.7 mg/dL (8.4-10.2) 04/04/21 05:34 Phosphorus 3.80 mg/dL (2.5-4.5) D 04/04/21 05:34 Magnesium 1.70 mg/dL (1.7-2.3) 04/04/21 05:34 Total Bilirubin 0.20 mg/dL (0.1-1.2) 04/01/21 15:34 Direct Bilirubin < 0.2 mg/dL (0-0.2) 04/01/21 15:34 Indirect Bilirubin 0.0 mg/dL 04/01/21 15:34 AST 26 units/L (5-40) 04/01/21 15:34 ALT 29 units/L (7-56) 04/01/21 15:34 Alkaline Phosphatase 163 units/L (35-129) H 04/01/21 15:34 Ammonia 98.0 umol/L (25-60) H 04/01/21 15:34 Lactate Dehydrogenase 462 units/L (91-180) H 04/01/21 17:51 Troponin T < 0.010 ng/mL (0.00-0.029) 04/01/21 15:34 C-Reactive Protein 0.10 mg/dL (0.00-1.30) 04/01/21 17:51 NT-Pro-B Natriuret Pep 101.8 pg/mL (0-450) 04/01/21 15:34 Total Protein 8.1 g/dL (6.3-8.2) 04/01/21 15:34 Albumin 4.4 g/dL (3.9-5) 04/01/21 15:34 Albumin/Globulin Ratio 1.2 % 04/01/21 15:34 Lipase 32 units/L (13-60) 04/01/21 15:34 Procalcitonin < 0.05 ng/mL (<0.15) 04/02/21 13:31 TSH 1.990 mlU/mL (0.270-4.200) 04/01/21 15:34 Urine Color Straw (Yellow) 04/01/21 17:56 Urine Turbidity Clear (Clear) 04/01/21 17:56 Urine pH 5.0 (5.0-7.0) 04/01/21 17:56 Ur Specific [place] 1.024 (1.003-1.030) 04/01/21 17:56 Urine Protein 100 mg/dl mg/dL (Negative) 04/01/21 17:56 Urine Glucose (UA) >=500 mg/dL (Negative) 04/01/21 17:56 Urine Ketones Tr mg/dL (Negative) 04/01/21 17:56 Urine Blood Neg (Negative) 04/01/21 17:56 Urine Nitrite Neg (Negative) 04/01/21 17:56 Urine Bilirubin Neg (Negative) 04/01/21 17:56 Urine Urobilinogen < 2.0 mg/dL (<2.0) 04/01/21 17:56 Ur Leukocyte Esterase Neg (Negative) 04/01/21 17:56 Urine WBC (Auto) 1.0 /HPF (0.0-6.0) 04/01/21 17:56 Urine RBC (Auto) 4.0 /HPF (0.0-6.0) 04/01/21 17:56 Urine Mucus Few /HPF 04/01/21 17:56 Salicylates < 0.3 mg/dL (2.8-20.0) L 04/01/21 15:34 Urine Opiates Screen Negative 04/01/21 17:56 Urine Methadone Screen Negative 04/01/21 17:56 Acetaminophen 5.0 ug/mL (10.0-30.0) L 04/01/21 15:34 Ur Barbiturates Screen Negative 04/01/21 17:56 Ur Phencyclidine Scrn Negative 04/01/21 17:56 Ur Amphetamines Screen Negative 04/01/21 17:56 U Benzodiazepines Scrn Negative 04/01/21 17:56 Urine Cocaine Screen Negative 04/01/21 17:56 U Marijuana (THC) Screen Positive 04/01/21 17:56 Drugs of Abuse Note Disclamer 04/01/21 17:56 Plasma/Serum Alcohol < 0.01 % (0-0.07) 04/01/21 15:34 Coronavirus (PCR) Negative (Negative) 04/02/21 08:24 Microbiology: Microbiology 04/01/21 15:34 Peripheral/Venous Blood Culture - Preliminary NO GROWTH AFTER 48 HOURS 04/01/21 15:34 Peripheral/Venous Blood Culture - Preliminary NO GROWTH AFTER 48 HOURS 04/01/21 Unknown Urine,Clean Catch Urine Culture - Preliminary Mcgill/IV: Voiding Method Toilet Active Medications - Current Medications Current Medications: Generic Name Dose Route Start Last Admin Trade Name Freq PRN Reason Stop Dose Admin Acetaminophen 650 mg 04/01/21 16:55 04/04/21 02:38 Acetaminophen 325 Mg Tab PO 650 mg Q6H PRN Administration Pain MILD(1-3)/Fever >100.5/BARTH Albuterol 2.5 mg 04/01/21 16:55 Albuterol 2.5 Mg/3 Ml Nebu IH Q3HRT PRN Shortness Of Breath Amlodipine Besylate 10 mg 04/03/21 10:00 04/03/21 09:38 Amlodipine 5 Mg Tab PO 10 mg QDAY DUY Administration Ascorbic Acid 500 mg 04/01/21 22:00 04/03/21 22:16 Ascorbic Acid 500 Mg Tab PO 500 mg BID DUY Administration Cholecalciferol 1,000 unit 04/02/21 10:00 04/03/21 09:39 Cholecalciferol (Vit D3) 400 Unit Tab PO 1,000 unit QDAY DUY Administration Dextrose 50 ml 04/02/21 16:56 Dextrose 50% In Water (25gm) 50 Ml Syringe IV Q30MIN PRN Hypoglycemia Protocol Famotidine 10 mg 04/02/21 22:00 04/03/21 22:16 Famotidine 10 Mg Tab PO 10 mg BID DUY Administration Heparin Sodium (Porcine) 5,000 unit 04/01/21 22:00 04/03/21 22:16 Heparin 5,000 Unit/1 Ml Vial SUB-Q 5,000 unit Q12HR DUY Administration Hydralazine HCl 10 mg 04/02/21 12:00 04/04/21 05:04 Hydralazine 20 Mg/1 Ml Inj IV 10 mg Q4H PRN Administration Hypertension Hydromorphone HCl 0.5 mg 04/01/21 16:55 04/03/21 10:12 Hydromorphone 1 Mg/1 Ml Inj IV 0.5 mg Q12H PRN Administration Pain , Severe (7-10) Insulin Human Isoph/Insulin Regular 40 unit 04/02/21 18:00 04/03/21 16:28 Insulin Nph/Regular 70/30 Inj SUB-Q 40 unit BIDDIAB DUY Administration Insulin Human Lispro 0 unit 04/02/21 22:00 04/03/21 16:28 Insulin Lispro 100 Unit/Ml SUB-Q 2 unit ACHS DUY Administration Protocol Levetiracetam 500 mg 04/01/21 22:00 04/03/21 22:16 Levetiracetam 500 Mg/5 Ml Oral Liqd PO 500 mg BID DUY Administration Oxycodone/Acetaminophen 1 tab 04/01/21 16:55 04/03/21 18:53 Oxycodone /Acetaminophen 5-325mg Tab PO 1 tab Q6H PRN Administration Pain, Moderate (4-6) Sodium Chloride 10 ml 04/01/21 22:00 04/03/21 22:16 Sodium Chloride 0.9% 10 Ml Flush Syringe IV 10 ml BID DUY Administration Sodium Chloride 10 ml 04/01/21 16:55 04/02/21 05:41 Sodium Chloride 0.9% 10 Ml Flush Syringe IV 10 ml PRN PRN Administration LINE FLUSH Zinc Sulfate 220 mg 04/01/21 22:00 04/03/21 22:16 Zinc Sulfate 220 Mg Cap PO 220 mg BID DUY Administration Nutrition/Malnutrition Assess - Dietary Evaluation Nutrition/Malnutrition Findings: Nutrition Notes Start: 04/02/21 10:33 Freq: Status: Active Protocol: Document 04/02/21 10:33 CHARLETTE (Rec: 04/02/21 10:42 CHARLETTE [id number]) Nutrition Notes Need for Assessment generated from: MD Order,Education Initial or Follow up Assessment Current Diagnosis Acute Kidney Injury,Diabetes, Sepsis,Hypertension Other Pertinent Diagnosis DKA, pneu, r/o COVID-19, status epilepticus, toxic metabolic encephalopathy Current Diet NPO Labs/Tests BG 578 upon admission POC Glu range: 129-555 Pertinent Medications Vit C, Vit D4, Zinc sulfate, Insulin gtt, Solumedrol, Na bicarb, D5 1/2NS + 20mEq KCl at 125ml/hr Height 6 ft Weight 119.3 kg [place] Body Weight (kg) 80.90 BMI 35.6 Weight Status Obese Subjective/Other Information RD consulted for diet education and NTR recommendations. Pt with hx of medication noncompliance. He is not appropriate for diet education at this time. Burn Absent Trauma Absent Minimum of two criteria No #1 Nutrition Diagnosis Inadequate oral intake Etiology DKA As Evidenced by Signs and Symptoms pt NPO and on insulin drip Is patient on ventilator? No Is Patient Ambulatory and/or Out of Bed No REE-([facility]-confined to bed) 2530.284 Kcal/Kg value to use for calculation 17 Approximate Energy Requirements Using 2027 kcal/Kg Calculation Used for Recommendations Kcal/kg Additional Notes Pro needs 2g/kg IBW: 162g/day Fluid needs 1ml/kcal Nutrition Intervention Change Diet Order: Diet advancement to Cardiac/ Consistent CHO when medically feasible Goal #1 Diet advancement to meet nutrient needs Goal #2 Improved BG control Goal #3 Adherence to CHO-controlled diet Anticipated Discharge Needs: Heart-healthy/CHO-controlled diet Follow-Up By: 04/06/21 Additional Comments F/U: diet advancement, diet education needs (DM and low sodium)
--- NOTE | 2021-04-04 09:41 | Consultation ---
History of Present Illness Consult date: 04/04/21 Reason for Consult: change in mentation , sepsis History of present illness: Confused History of present illness: 46 YO Male with HTN, DM, Medication noncompliance presents to ED for evaluation he is with hx of HIV. Patient is confused and lethargic initially As per patient friend the patient has experienced increased confusion and weakness over the past 1 day with worsening symptoms over the same timeframe. Patient was found to have a witnessed seizure EMS was notified due to worsening of the aforementioned symptoms. Upon arrival the patient was found to be in distress and subsequent transported to [facility] for further care and evaluation of the aforementioned symptoms. All lab and imaging studies reviewed. The patient was found to have bilateral pneumonia on chest x-ray complicated by sepsis as well as diabetic ketoacidosis, acute kidney injury, and toxic metabolic encephalopathy. Patient Initially admitted to ICU and initiated on sepsis protocol, DKA protocol, pneumonia protocol, as well as coronavirus protocol. Patient has diminished cognition at the time my evaluation but has a positive gag reflex and is able to protect his airway at the time my evaluation. Patient loaded with Keppra in the emergency department. No prior admission for review. No medication listed at time of admission for reconciliation. Advanced care planning conducted in ED. Today pt. evaluated by neurology he is alert oriented compaling of headache according to him been on going for the last week , he is with no hx of headache or seizure According to pt. he stopped taking all his medication sinec he is not working and can not afford medicine Initial A1C#12.9 -CT brain is unremarkable -he discripes headache as vieyra pain all over not responding to hydrocodon Past History Past Medical History: diabetes, hypertension Past Surgical History: No surgical history, Other (Reviewed) Social history: single. denies: smoking, alcohol abuse, prescription drug abuse Family history: diabetes, hypertension Medications and Allergies Allergies Allergy/AdvReac Type Severity Reaction Status Date / Time No Known Allergies Allergy Unverified 04/01/21 15:33 Active Meds: Active Medications Sodium Chloride (Nacl 0.9% 1000 Ml) 1,000 mls @ 999 mls/hr IV BOLUS ONE Stop: 04/01/21 17:38 Potassium Chloride (Kcl 10meq/100ml) 10 meq in 100 mls @ 100 mls/hr IV Q1H DUY Stop: 04/01/21 20:59 Lactated Ringer's (Lactated Ringers) 1,000 mls @ 999 mls/hr IV BOLUS ONE Stop: 04/01/21 17:42 Lactated Ringer's (Lactated Ringers) 1,000 mls @ 999 mls/hr IV BOLUS ONE Stop: 04/01/21 17:42 Review of Systems ROS unobtainable: due to mental status Past History Past Medical History: diabetes, hypertension Past Surgical History: No surgical history, Other (Reviewed) Social history: single. denies: smoking, alcohol abuse, prescription drug abuse Family history: diabetes, hypertension Medications and Allergies Allergies Allergy/AdvReac Type Severity Reaction Status Date / Time shellfish derived Allergy Angioedema Verified 04/01/21 22:21 Home Medications Medication Instructions Recorded Confirmed Last Taken Type No Known Home Medications [No 04/02/21 04/02/21 Unknown History Reported Home Medications] Active Meds: Active Medications Acetaminophen (Acetaminophen 325 Mg Tab) 650 mg PO Q6H PRN PRN Reason: Pain MILD(1-3)/Fever >100.5/BARTH Last Admin: 04/04/21 08:35 Dose: 650 mg Documented by: Albuterol (Albuterol 2.5 Mg/3 Ml Nebu) 2.5 mg IH Q3HRT PRN PRN Reason: Shortness Of Breath Amlodipine Besylate (Amlodipine 5 Mg Tab) 10 mg PO QDAY COUNT INCLUDES THE [facility] Last Admin: 04/04/21 08:35 Dose: 10 mg Documented by: Ascorbic Acid (Ascorbic Acid 500 Mg Tab) 500 mg PO BID COUNT INCLUDES THE [facility] Last Admin: 04/04/21 08:35 Dose: 500 mg Documented by: Cholecalciferol (Cholecalciferol (Vit D3) 400 Unit Tab) 1,000 unit PO QDAY COUNT INCLUDES THE [facility] Last Admin: 04/03/21 09:39 Dose: 1,000 unit Documented by: Dextrose (Dextrose 50% In Water (25gm) 50 Ml Syringe) 50 ml IV Q30MIN PRN; Protocol PRN Reason: Hypoglycemia Famotidine (Famotidine 10 Mg Tab) 10 mg PO BID COUNT INCLUDES THE [facility] Last Admin: 04/04/21 08:35 Dose: 10 mg Documented by: Heparin Sodium (Porcine) (Heparin 5,000 Unit/1 Ml Vial) 5,000 unit SUB-Q Q12HR COUNT INCLUDES THE [facility] Last Admin: 04/04/21 08:36 Dose: 5,000 unit Documented by: Hydralazine HCl (Hydralazine 20 Mg/1 Ml Inj) 10 mg IV Q4H PRN PRN Reason: Hypertension Last Admin: 04/04/21 05:04 Dose: 10 mg Documented by: Hydromorphone HCl (Hydromorphone 1 Mg/1 Ml Inj) 0.5 mg IV Q12H PRN PRN Reason: Pain , Severe (7-10) Last Admin: 04/03/21 10:12 Dose: 0.5 mg Documented by: Insulin Human Isoph/Insulin Regular (Insulin Nph/Regular 70/30 Inj) 45 unit SUB-Q BIDDIAB COUNT INCLUDES THE [facility] Insulin Human Lispro (Insulin Lispro 100 Unit/Ml) 0 unit SUB-Q ACHS COUNT INCLUDES THE [facility]; Protocol Last Admin: 04/04/21 08:36 Dose: 3 unit Documented by: Labetalol HCl (Labetalol 200 Mg Tab) 200 mg PO BID COUNT INCLUDES THE [facility] Levetiracetam (Levetiracetam 500 Mg/5 Ml Oral Liqd) 500 mg PO BID COUNT INCLUDES THE [facility] Last Admin: 04/04/21 08:35 Dose: 500 mg Documented by: Oxycodone/Acetaminophen (Oxycodone /Acetaminophen 5-325mg Tab) 1 tab PO Q6H PRN PRN Reason: Pain, Moderate (4-6) Last Admin: 04/03/21 18:53 Dose: 1 tab Documented by: Sodium Chloride (Sodium Chloride 0.9% 10 Ml Flush Syringe) 10 ml IV BID COUNT INCLUDES THE [facility] Last Admin: 04/03/21 22:16 Dose: 10 ml Documented by: Sodium Chloride (Sodium Chloride 0.9% 10 Ml Flush Syringe) 10 ml IV PRN PRN PRN Reason: LINE FLUSH Last Admin: 04/02/21 05:41 Dose: 10 ml Documented by: Zinc Sulfate (Zinc Sulfate 220 Mg Cap) 220 mg PO BID COUNT INCLUDES THE [facility] Last Admin: 04/04/21 08:36 Dose: 220 mg Documented by: Physical Examination - Vital Signs Vital Signs: Vital Signs Temp 98.1 F 04/01/21 15:39 - Constitutional General appearance: uncomfortable, other (due to headache) - EENT EENT: Present: PERRL, mucous membranes moist - Respiratory Respiratory: Present: lungs clear, rhonchi - Cardiovascular Cardiovascular: Present: regular rate, normal S1, normal S2 Extremities: Present: no peripheral edema bilatateraly, no clubbing, cyanosis - Gastrointestinal Gastrointestinal: Present: normoactive bowel sounds - Integumentary Integumentary: Present: normal - Neurologic Cranial nerve examination: PERRL, EOMI, intact Speech examination: intact Sensorimotor examination: intact Detailed motor examination: grossly full strength in Results - Laboratory Findings CBC and BMP: 04/04/21 05:34 04/04/21 05:34 Abnormal Lab Findings: Abnormal Labs 04/01/21 04/01/21 04/01/21 15:32 15:34 15:34 WBC 20.4 H RBC 6.88 H Hgb 16.4 H Hct 56.3 H MCV 82 L MCH 24 L MCHC 29 L RDW 20.3 H Plt Count 860 H Seg Neutrophils # Man 10.8 H Lymphocytes # (Manual) 6.9 H D-Dimer VBG pH Sodium Potassium 3.4 L Chloride 96.1 L Carbon Dioxide 7 L* BUN Creatinine 1.5 H Glucose 578 H* POC Glucose 555 H Hemoglobin A1c Lactic Acid Phosphorus Magnesium Alkaline Phosphatase 163 H Ammonia Lactate Dehydrogenase Salicylates Acetaminophen 04/01/21 04/01/21 04/01/21 15:34 15:34 15:34 WBC RBC Hgb Hct MCV MCH MCHC RDW Plt Count Seg Neutrophils # Man Lymphocytes # (Manual) D-Dimer VBG pH Sodium Potassium Chloride Carbon Dioxide BUN Creatinine Glucose POC Glucose Hemoglobin A1c Lactic Acid Phosphorus Magnesium Alkaline Phosphatase Ammonia 98.0 H Lactate Dehydrogenase Salicylates < 0.3 L Acetaminophen 5.0 L 04/01/21 04/01/21 04/01/21 15:34 17:51 17:51 WBC RBC Hgb Hct MCV MCH MCHC RDW Plt Count Seg Neutrophils # Man Lymphocytes # (Manual) D-Dimer 287.60 H VBG pH 7.102 L* Sodium Potassium Chloride Carbon Dioxide BUN Creatinine Glucose POC Glucose Hemoglobin A1c Lactic Acid 2.90 H* Phosphorus Magnesium Alkaline Phosphatase Ammonia Lactate Dehydrogenase Salicylates Acetaminophen 04/01/21 04/01/21 04/01/21 17:51 19:50 19:50 WBC RBC Hgb Hct MCV MCH MCHC RDW Plt Count Seg Neutrophils # Man Lymphocytes # (Manual) D-Dimer VBG pH Sodium 136 L Potassium Chloride Carbon Dioxide 19 L D 20 L BUN Creatinine Glucose 526 H* 267 H POC Glucose Hemoglobin A1c Lactic Acid 2.40 H* Phosphorus Magnesium Alkaline Phosphatase Ammonia Lactate Dehydrogenase 462 H Salicylates Acetaminophen 04/01/21 04/01/21 04/01/21 20:25 21:46 23:06 WBC RBC Hgb Hct MCV MCH MCHC RDW Plt Count Seg Neutrophils # Man Lymphocytes # (Manual) D-Dimer VBG pH Sodium Potassium Chloride 108.3 H Carbon Dioxide BUN Creatinine Glucose 173 H POC Glucose 172 H 129 H Hemoglobin A1c Lactic Acid Phosphorus Magnesium Alkaline Phosphatase Ammonia Lactate Dehydrogenase Salicylates Acetaminophen 04/01/21 04/02/21 04/02/21 23:06 00:38 01:39 WBC RBC Hgb Hct MCV MCH MCHC RDW Plt Count Seg Neutrophils # Man Lymphocytes # (Manual) D-Dimer VBG pH Sodium Potassium Chloride Carbon Dioxide BUN Creatinine Glucose POC Glucose 160 H 242 H 273 H Hemoglobin A1c Lactic Acid Phosphorus Magnesium Alkaline Phosphatase Ammonia Lactate Dehydrogenase Salicylates Acetaminophen 04/02/21 04/02/21 04/02/21 03:33 03:59 05:19 WBC RBC Hgb Hct MCV MCH MCHC RDW Plt Count Seg Neutrophils # Man Lymphocytes # (Manual) D-Dimer VBG pH Sodium Potassium Chloride 107.7 H Carbon Dioxide 20 L BUN Creatinine Glucose 230 H POC Glucose 217 H 253 H Hemoglobin A1c Lactic Acid Phosphorus Magnesium Alkaline Phosphatase Ammonia Lactate Dehydrogenase Salicylates Acetaminophen 04/02/21 04/02/21 04/02/21 06:33 07:36 08:24 WBC RBC Hgb Hct MCV MCH MCHC RDW Plt Count Seg Neutrophils # Man Lymphocytes # (Manual) D-Dimer VBG pH Sodium Potassium Chloride Carbon Dioxide BUN Creatinine Glucose POC Glucose 260 H 266 H 198 H Hemoglobin A1c Lactic Acid Phosphorus Magnesium Alkaline Phosphatase Ammonia Lactate Dehydrogenase Salicylates Acetaminophen 04/02/21 04/02/21 04/02/21 09:28 10:31 11:36 WBC RBC Hgb Hct MCV MCH MCHC RDW Plt Count Seg Neutrophils # Man Lymphocytes # (Manual) D-Dimer VBG pH Sodium Potassium Chloride Carbon Dioxide BUN Creatinine Glucose POC Glucose 202 H 235 H 241 H Hemoglobin A1c Lactic Acid Phosphorus Magnesium Alkaline Phosphatase Ammonia Lactate Dehydrogenase Salicylates Acetaminophen 04/02/21 04/02/21 04/02/21 12:27 13:29 13:31 WBC RBC Hgb Hct MCV MCH MCHC RDW Plt Count Seg Neutrophils # Man Lymphocytes # (Manual) D-Dimer VBG pH Sodium 136 L Potassium Chloride Carbon Dioxide 21 L BUN Creatinine Glucose 171 H POC Glucose 218 H 165 H Hemoglobin A1c Lactic Acid Phosphorus 2.40 L Magnesium Alkaline Phosphatase Ammonia Lactate Dehydrogenase Salicylates Acetaminophen 04/02/21 04/02/21 04/02/21 14:16 15:31 16:37 WBC RBC Hgb Hct MCV MCH MCHC RDW Plt Count Seg Neutrophils # Man Lymphocytes # (Manual) D-Dimer VBG pH Sodium Potassium Chloride Carbon Dioxide BUN Creatinine Glucose POC Glucose 158 H 132 H 134 H Hemoglobin A1c Lactic Acid Phosphorus Magnesium Alkaline Phosphatase Ammonia Lactate Dehydrogenase Salicylates Acetaminophen 04/02/21 04/02/21 04/02/21 17:32 18:30 21:59 WBC RBC Hgb Hct MCV MCH MCHC RDW Plt Count Seg Neutrophils # Man Lymphocytes # (Manual) D-Dimer VBG pH Sodium 136 L Potassium Chloride Carbon Dioxide 19 L BUN Creatinine Glucose 258 H POC Glucose 201 H 282 H Hemoglobin A1c Lactic Acid Phosphorus Magnesium 1.60 L Alkaline Phosphatase Ammonia Lactate Dehydrogenase Salicylates Acetaminophen 04/03/21 04/03/21 04/03/21 04:36 04:36 04:36 WBC 11.1 H RBC 6.72 H Hgb 15.5 H Hct 50.5 H MCV 75 L MCH 23 L MCHC 31 L RDW 20.0 H Plt Count 682 H Seg Neutrophils # Man Lymphocytes # (Manual) D-Dimer VBG pH Sodium Potassium 3.5 L Chloride Carbon Dioxide BUN 7 L Creatinine Glucose 189 H POC Glucose Hemoglobin A1c 12.9 H Lactic Acid Phosphorus Magnesium Alkaline Phosphatase Ammonia Lactate Dehydrogenase Salicylates Acetaminophen 04/03/21 04/03/21 04/03/21 07:07 11:40 16:07 WBC RBC Hgb Hct MCV MCH MCHC RDW Plt Count Seg Neutrophils # Man Lymphocytes # (Manual) D-Dimer VBG pH Sodium Potassium Chloride Carbon Dioxide BUN Creatinine Glucose POC Glucose 215 H 209 H 179 H Hemoglobin A1c Lactic Acid Phosphorus Magnesium Alkaline Phosphatase Ammonia Lactate Dehydrogenase Salicylates Acetaminophen 04/03/21 04/04/21 04/04/21 22:32 05:34 05:34 WBC RBC 7.28 H Hgb 16.4 H Hct 55.2 H MCV 76 L MCH 23 L MCHC 30 L RDW 20.0 H Plt Count 684 H Seg Neutrophils # Man Lymphocytes # (Manual) D-Dimer VBG pH Sodium Potassium 3.0 L Chloride Carbon Dioxide BUN 6 L Creatinine Glucose 111 H POC Glucose 142 H Hemoglobin A1c Lactic Acid Phosphorus Magnesium Alkaline Phosphatase Ammonia Lactate Dehydrogenase Salicylates Acetaminophen 04/04/21 07:20 WBC RBC Hgb Hct MCV MCH MCHC RDW Plt Count Seg Neutrophils # Man Lymphocytes # (Manual) D-Dimer VBG pH Sodium Potassium Chloride Carbon Dioxide BUN Creatinine Glucose POC Glucose 204 H Hemoglobin A1c Lactic Acid Phosphorus Magnesium Alkaline Phosphatase Ammonia Lactate Dehydrogenase Salicylates Acetaminophen Assessment and Plan Assessment and Plan This is a 46-year-old male with known past medical history of DM and HTN, noncompliant with meds who was admitted for seizur, DKA, and sepsis -Possible hx of HIV ? - Patient Problems # Sepsis Sepsis protocol: Chest x-ray, CBC, CMP, urinalysis, IV fluid resuscitation therapy, IV antibiotic therapy, supplemental oxygen, serial lactic acid level, monitor fluid balance, maintain mean arterial pressure greater than or equal to 65, blood culture, repeat CBC in a.m. # DKA (diabetic ketoacidosis) Current Visit: Yes Status: Acute Qualifiers: Diabetes mellitus complication detail: without coma Plan to address problem: DKA protocol: IV fluid resuscitation therapy, insulin drip, serial BMP, monitor anion gap, potassium repletion as per protocol, # Recurrent seizure new onset # Recurrent headache -CT brain is unremarkable -MRI brain w,wo Gd is pending -EEG is pending -Seizure precaution , no driving -Keppra loading in ED, Keppra 500 mg twice daily, treat sepsis, supportive care. # Recurrent headache -pt. discriped new onset of headache for the last week with no hx of headache -lack of response to analgesic -try fiorcet Q6 stop alangesic and sedative medications -MRI brain with gd # Pneumonia -Pneumonia protocol: Chest x-ray, CBC, CMP, IV antibiotic therapy, supplemental oxygen, pulse oximetry, nebulizer therapy, supportive care. #Acute kidney injury (LAY) with acute tubular necrosis (ATN) -BMP, IV fluid resuscitation therapy, repeat BMP in a.m. to monitor serum creatinine as well as GFR. # Acidosis -IV fluid resuscitation therapy, IV bicarbonate therapy, BMP, repeat BMP in a.m. # Toxic metabolic encephalopathy -CT head, neuro check, seizure precautions, aspiration precautions, treat sepsis. - resolved # DVT prophylaxis -SCDs bilateral lower extremities while in bed, prophylactic anticoagulation will follow as needed review MRI and EEG
[2021-04-04] MEDS: INSULIN NPH/REGULAR 70/30 INJ SUB-Q SCH ×2 (10:19→17:30)
[2021-04-04] MEDS: CHOLECALCIFEROL (VIT D3) 1000 UNIT (25 mcg) TAB PO SCH (12:59)
[2021-04-04] MEDS ORDERED: BUTALB/ACETAMINOPHEN/CAFFEINE TAB PO PRN (13:50)
[2021-04-04] MEDS: oxyCODONE /ACETAMINOPHEN 5-325MG TAB PO PRN (20:32)
[2021-04-04] MEDS: ONDANSETRON 4 MG/2 ML INJ IV PRN (22:45)
[2021-04-05] MEDS: ACETAMINOPHEN 325 MG TAB PO PRN (07:40)
[2021-04-05] MEDS: INSULIN LISPRO 100 UNIT/ML SUB-Q SCH ×4 (07:44→21:16)
[2021-04-05] MEDS ORDERED: POTASSIUM CHLORIDE ER 20 MEQ TAB PO NR (08:15)
[2021-04-05] MEDS: ASCORBIC ACID 500 MG TAB PO SCH ×2 (09:52→21:15)
[2021-04-05] MEDS: ZINC SULFATE 220 MG CAP PO SCH ×2 (09:52→21:15)
[2021-04-05] MEDS: levETIRAcetam 500 MG/5 ML ORAL LIQD PO SCH ×2 (09:52→21:15)
[2021-04-05] MEDS: amLODIPine 5 MG TAB PO SCH (09:52)
[2021-04-05] MEDS: HEPARIN 5,000 UNIT/1 ML VIAL SUB-Q SCH ×2 (09:52→21:15)
[2021-04-05] MEDS: FAMOTIDINE 10 MG TAB PO SCH ×2 (09:52→21:15)
[2021-04-05] MEDS: CHOLECALCIFEROL (VIT D3) 1000 UNIT (25 mcg) TAB PO SCH (09:52)
[2021-04-05] MEDS: INSULIN NPH/REGULAR 70/30 INJ SUB-Q SCH ×2 (09:57→17:51)
[2021-04-05] MEDS: ONDANSETRON 4 MG/2 ML INJ IV PRN (11:30)
--- NOTE | 2021-04-05 14:08 | Electrocardiograph Report ---
[facility] Test Date: 2021-04-01 Test Time: 16:24:50 Pat Name: DALILA SANDOVAL Department: Room: A369 Gender: M Communication Signals Intelligence: DAVIN : 1975 Requested By: JOSE WATERS Order Number: [id number] Reading MD: Prabhakar Dobbins Measurements Intervals Nixa Rate: 121 P: 43 CO: 122 QRS: -11 QRSD: 90 T: 41 QT: 343 QTc: 487 Interpretive Statements Sinus tachycardia Probable left atrial enlargement Probable anteroseptal infarct, old No previous ECG available for comparison Electronically Signed On 04-05-2021 14:08:10 EST by Prabhakar Dobbins
--- NOTE | 2021-04-05 16:25 | Magnetic Resonance Report ---
MRI BRAIN WITHOUT AND WITH CONTRAST INDICATION / CLINICAL INFORMATION: Seizure disorder. TECHNIQUE: Multiplanar, multisequence MR images of the brain were obtained. Contrast: Clairscan: 20 ml, administered intravenously. COMPARISON: None available. FINDINGS: BRAIN / INTRACRANIAL CONTENTS: Ventricles and cortical sulci are normal in size and configuration. Th ere is no mass effect. No evidence of intracranial hemorrhage or extra-axial fluid collection is seen . A few well-circumscribed, small foci of white matter hyperintensity are observed in a deep and linda ventricular white matter distribution.. These are nonspecific findings. No significant areas of abnor mal brain parenchymal signal intensity are identified. There is no indication of remote cortical infa rction. Diffusion weighted scans are negative. There is no indication of acute ischemic injury. The brainstem and cerebellum have an unremarkable appearance. MIDLINE STRUCTURES: Pituitary infundibulum is enlarged and demonstrates a robust contrast enhancement . Considerations include hypophysitis which can be secondary to lymphocytic infiltration or IgG4 hypo physitis, sarcoidosis. neoplastic or infectious etiologies are less likely. Correlation with cerebros shelton fluid evaluation may be useful if clinically indicated. Pituitary gland itself has an unremarka ble appearance. No abnormalities are seen in the pineal region. CRANIOCERVICAL JUNCTION: No abnormalities are identified at the craniocervical junction. VASCULAR FLOW-VOIDS: Normal flow-voids are present within the major intracranial vessels. ORBITS: The orbits have an unremarkable appearance. SINUSES / MASTOIDS: Inflammatory changes are present in the right frontal sinus. There is no addition al indication of inflammatory disease in the paranasal sinuses or mastoid air cells. Following the administration of intravenous contrast enhancement of normal vascular structures is dem onstrated. Enhancement of an enlarged pituitary stalk is demonstrated as described above. No addition al areas of abnormal contrast enhancement are identified. IMPRESSION: 1. The pituitary infundibulum appears to be enlarged as described above. 2. Otherwise negative MRI brain without and with intravenous contrast. Signer Name: Deng Tubbs MD Signed: 04/05/2021 4:20 PM Workstation Name: [id number]
--- NOTE | 2021-04-05 16:26 | Progress Note ---
Assessment and Plan Assessment and plan: This is a 46-year-old male with known past medical history of DM and HTN, noncompliant with meds who was admitted for seizur, DKA, and sepsis Hospital Course to Date: 04/02/21- Patient is fully AAO, RA, no signs of any acute distress. Remains on DKA protocol, gap is closed plan to transition to SubQ insulin.. No more seizure like activities reported, EEG ispending, and Neuro is consulted. Patient has been hypertensive overnight, per patient he lost his job and insurance recently and has not been able to refill his medications. He reported that he was taking Norvasc for high blood pressure, but did not report what he was taking for his DM. Will start patient back on Norvasc Qday with some PRN Hydralazine. And case management consulted for possible medications assistance. Patient is stable for transfer to the floor once he is off the insulin gtt. 04/03/21- Patient transitioned to SubQ insulin overnight. Still hypertensive, per patient he was taking 10mg of Norvasc at home, antihypertensive adjusted to home dose. EEG and Neuro recommendation pending. Will order MRI brain for now. Continue IV Keppra Q12hrs. Electrolytes repleted, repeat in the am. Patient is stable for transfer to the floor 04/04/2021-BG remains slightly elevated. We will increase insulin to 45 units twice daily. Patient also with accelerated hypertension. We will add labetalol 200 mg p.o. twice daily to the regimen. No new seizure activity over the past 48 hours. Continue Keppra 500 mg twice daily. Await MRI and EEG. Neurology following. 04/05/2021: MRI brain and EEG pending. Patient states that headache has improved on my encounter. We will continue to follow along with neurology regarding final recommendations. Blood pressure optimization needed. We will start losartan 100 mg p.o. daily. Assessment and plan #Status Epilepticus - Presented with witnessed seizure - CT head with no acute intracranial abnormality - Was loaded with Keppra in the ED - EEG is pending - MRI Brain ordered - Continue Keppra BID - PRN Benzo for seizures like activity - Avoid Delirium - Maintain regular sleep cycle - Neurology consulted #Hypertension - Patient has a history of HTN - Recently lost his job, unable to afford them at this -Antihypertensive regimen in hospital: Norvasc 10 mg p.o. daily, losartan 100 mg p.o. daily, labetalol 200 mg p.o. twice daily, - PRN Hydralazine for SBP greater than 160 - Maintain adequate perfusion - Continue to monitor blood pressure per protocol #??Bilateral Pneumonia - Initial CXR with no acute findings - Presented with diminished cognition intially required O2 supplement - Remains on RA, SPO2 94 to 97% - COVID swab negative - IV steroids D/Cd - 2L O2 supplement on standby at the bedside - Continue SPO2 monitoring for a SPO2 goal above 92% - [facility] to follow #Acute kidney injury (LAY) with acute tubular necrosis (ATN) #Hypokalemia #Hyponatremia- improved - Patient's baseline is unknown - SCr. as high as 1.5 on admit - Probably related to dehydration/DKA - SCr. improved with IV rehydration, Scr. 0.9 this am - Strict intake and output - Avoid nephrotoxic medications; Renally dose medications - Monitor and replace electrolytes as needed - Trend BMP #Sepsis #Leukocytosis-improved #Lactic Acidosis- resolved #Hyperglycemia #DKA (diabetic ketoacidosis) #Uncontrolled DM - A1c 12.9 - No longer on DKA protocol - Transitioned to SubQ insulin overnight - Continue SSI ACHS and Basal 70/30 BID - Avoid Hypoglycemia #DVT prophylaxis - Continue AC- Heparin SubQ - SCDs bilateral lower extremities while in bed History Interval history: No acute complaints this morning on encounter. Hospitalist Physical - Physical exam Narrative exam: Physical Exam: VITAL SIGNS: Reviewed. GENERAL: The patient appears normally developed, Vital signs as documented. HEAD: No signs of head trauma. EYES: Pupils are equal. Extraocular motions intact. EARS: Hearing grossly intact. MOUTH: Oropharynx is normal. NECK: No adenopathy, no JVD. CHEST: Chest with clear breath sounds bilaterally. No wheezes, rales, or rhonchi. CARDIAC: Regular rate and rhythm. S1 and S2, without murmurs, gallops, or rubs. VASCULAR: No Edema. Peripheral pulses normal and equal in all extremities. ABDOMEN: Soft, non tender and non distended. No rebound or guarding, and no masses palpated. Bowel Sounds normal. MUSCULOSKELETAL: Good range of motion of all major joints. Extremities without clubbing, cyanosis or edema. NEUROLOGIC EXAM: Alert and oriented x 4. no focal sensory or strength deficits. PSYCHIATRIC: Mood normal. SKIN: detail exam as documented in skin assessment - Constitutional Vitals: Temp Pulse Resp BP Pulse Ox 99.0 F 94 H 18 145/100 96 04/05/21 11:20 04/05/21 11:20 04/05/21 11:20 04/05/21 11:20 04/05/21 11:20 General appearance: Present: no acute distress, severe distress HEART Score - HEART Score Troponin: Troponin T < 0.010 ng/mL (0.00-0.029) 04/01/21 15:34 Results - Labs CBC & Chem 7: 04/04/21 05:34 04/04/21 05:34 Labs: Laboratory Last Values WBC 9.2 K/mm3 (4.5-11.0) 04/04/21 05:34 RBC 7.28 M/mm3 (3.65-5.03) H 04/04/21 05:34 Hgb 16.4 gm/dl (11.8-15.2) H 04/04/21 05:34 Hct 55.2 % (35.5-45.6) H 04/04/21 05:34 MCV 76 fl (84-94) L 04/04/21 05:34 MCH 23 pg (28-32) L 04/04/21 05:34 MCHC 30 % (32-34) L 04/04/21 05:34 RDW 20.0 % (13.2-15.2) H 04/04/21 05:34 Plt Count 684 K/mm3 (140-440) H 04/04/21 05:34 Lymph # (Auto) Mainframe Analyst 04/01/21 15:34 Add Manual Diff Complete 04/01/21 15:34 Total Counted 100 04/01/21 15:34 Seg Neuts % (Manual) 53.0 % (40.0-70.0) 04/01/21 15:34 Band Neutrophils % 4.0 % 04/01/21 15:34 Lymphocytes % (Manual) 34.0 % (13.4-35.0) 04/01/21 15:34 Reactive Lymphs % (Man) 5.0 % 04/01/21 15:34 Monocytes % (Manual) 3.0 % (0.0-7.3) 04/01/21 15:34 Blast Cells % 1.0 % 04/01/21 15:34 Nucleated RBC % Not Reportable 04/01/21 15:34 Seg Neutrophils # Man 10.8 K/mm3 (1.8-7.7) H 04/01/21 15:34 Band Neutrophils # 0.8 K/mm3 04/01/21 15:34 Lymphocytes # (Manual) 6.9 K/mm3 (1.2-5.4) H 04/01/21 15:34 Abs React Lymphs (Man) 1.0 K/mm3 04/01/21 15:34 Monocytes # (Manual) 0.6 K/mm3 (0.0-0.8) 04/01/21 15:34 Eosinophils # (Manual) 0.0 K/mm3 (0.0-0.4) 04/01/21 15:34 Basophils # (Manual) 0.0 K/mm3 (0.0-0.1) 04/01/21 15:34 Metamyelocytes # 0.0 K/mm3 04/01/21 15:34 Myelocytes # 0.0 K/mm3 04/01/21 15:34 Promyelocytes # 0.0 K/mm3 04/01/21 15:34 Blast Cells # 0.4 K/mm3 04/01/21 15:34 WBC Morphology Not Reportable 04/01/21 15:34 Hypersegmented Neuts Not Reportable 04/01/21 15:34 Hyposegmented Neuts Not Reportable 04/01/21 15:34 Hypogranular Neuts Not Reportable 04/01/21 15:34 Smudge Cells Not Reportable 04/01/21 15:34 Toxic Granulation Not Reportable 04/01/21 15:34 Toxic Vacuolation Not Reportable 04/01/21 15:34 Dohle Bodies Not Reportable 04/01/21 15:34 Pelger-Huet Anomaly Not Reportable 04/01/21 15:34 Brinda Rods Not Reportable 04/01/21 15:34 Platelet Estimate Consistent w auto 04/01/21 15:34 Clumped Platelets Not Reportable 04/01/21 15:34 Plt Clumps, EDTA Not Reportable 04/01/21 15:34 Large Platelets Not Reportable 04/01/21 15:34 Giant Platelets Not Reportable 04/01/21 15:34 Platelet Satelliting Not Reportable 04/01/21 15:34 Plt Morphology Comment Not Reportable 04/01/21 15:34 RBC Morphology Not Reportable 04/01/21 15:34 Dimorphic RBCs Not Reportable 04/01/21 15:34 Polychromasia Not Reportable 04/01/21 15:34 Hypochromasia 1+ 04/01/21 15:34 Poikilocytosis Not Reportable 04/01/21 15:34 Anisocytosis 1+ 04/01/21 15:34 Microcytosis Not Reportable 04/01/21 15:34 Macrocytosis Not Reportable 04/01/21 15:34 Spherocytes Not Reportable 04/01/21 15:34 Pappenheimer Bodies Not Reportable 04/01/21 15:34 Sickle Cells Not Reportable 04/01/21 15:34 Target Cells Not Reportable 04/01/21 15:34 Tear Drop Cells Not Reportable 04/01/21 15:34 Ovalocytes Not Reportable 04/01/21 15:34 Helmet Cells Not Reportable 04/01/21 15:34 Alvarez-[place] Bodies Not Reportable 04/01/21 15:34 [place] Rings Not Reportable 04/01/21 15:34 Wiseman Cells Not Reportable 04/01/21 15:34 Bite Cells Not Reportable 04/01/21 15:34 Crenated Cell Not Reportable 04/01/21 15:34 Elliptocytes Not Reportable 04/01/21 15:34 Acanthocytes (Spur) Not Reportable 04/01/21 15:34 Rouleaux Not Reportable 04/01/21 15:34 Hemoglobin C Crystals Not Reportable 04/01/21 15:34 Schistocytes Not Reportable 04/01/21 15:34 Malaria parasites Not Reportable 04/01/21 15:34 Facundo Bodies Not Reportable 04/01/21 15:34 Hem Pathologist Commnt No 04/01/21 15:34 PT 13.9 Sec. (12.2-14.9) 04/01/21 15:34 INR 0.96 (0.87-1.13) 04/01/21 15:34 APTT 26.1 Sec. (24.2-36.6) 04/01/21 15:34 D-Dimer 287.60 ng/mlDDU (0-234) H 04/01/21 17:51 VBG pH 7.102 (7.320-7.420) L* 04/01/21 15:34 Sodium 139 mmol/L (137-145) 04/04/21 05:34 Potassium 3.0 mmol/L (3.6-5.0) L 04/04/21 05:34 Chloride 100.7 mmol/L (98-107) 04/04/21 05:34 Carbon Dioxide 24 mmol/L (22-30) 04/04/21 05:34 Anion Gap 17 mmol/L 04/04/21 05:34 BUN 6 mg/dL (9-20) L 04/04/21 05:34 Creatinine 0.9 mg/dL (0.8-1.3) 04/04/21 05:34 Estimated GFR > 60 ml/min 04/04/21 05:34 BUN/Creatinine Ratio 7 % 04/04/21 05:34 Glucose 111 mg/dL (75-100) H 04/04/21 05:34 POC Glucose 289 mg/dL (70-105) H 04/05/21 11:15 Hemoglobin A1c 12.9 % (4-6) H 04/03/21 04:36 Lactic Acid 1.10 mmol/L (0.7-2.0) 04/01/21 23:06 Calcium 8.7 mg/dL (8.4-10.2) 04/04/21 05:34 Phosphorus 3.80 mg/dL (2.5-4.5) D 04/04/21 05:34 Magnesium 1.70 mg/dL (1.7-2.3) 04/04/21 05:34 Total Bilirubin 0.20 mg/dL (0.1-1.2) 04/01/21 15:34 Direct Bilirubin < 0.2 mg/dL (0-0.2) 04/01/21 15:34 Indirect Bilirubin 0.0 mg/dL 04/01/21 15:34 AST 26 units/L (5-40) 04/01/21 15:34 ALT 29 units/L (7-56) 04/01/21 15:34 Alkaline Phosphatase 163 units/L (35-129) H 04/01/21 15:34 Ammonia 98.0 umol/L (25-60) H 04/01/21 15:34 Lactate Dehydrogenase 462 units/L (91-180) H 04/01/21 17:51 Troponin T < 0.010 ng/mL (0.00-0.029) 04/01/21 15:34 C-Reactive Protein 0.10 mg/dL (0.00-1.30) 04/01/21 17:51 NT-Pro-B Natriuret Pep 101.8 pg/mL (0-450) 04/01/21 15:34 Total Protein 8.1 g/dL (6.3-8.2) 04/01/21 15:34 Albumin 4.4 g/dL (3.9-5) 04/01/21 15:34 Albumin/Globulin Ratio 1.2 % 04/01/21 15:34 Lipase 32 units/L (13-60) 04/01/21 15:34 Procalcitonin < 0.05 ng/mL (<0.15) 04/02/21 13:31 TSH 1.990 mlU/mL (0.270-4.200) 04/01/21 15:34 Urine Color Straw (Yellow) 04/01/21 17:56 Urine Turbidity Clear (Clear) 04/01/21 17:56 Urine pH 5.0 (5.0-7.0) 04/01/21 17:56 Ur Specific [place] 1.024 (1.003-1.030) 04/01/21 17:56 Urine Protein 100 mg/dl mg/dL (Negative) 04/01/21 17:56 Urine Glucose (UA) >=500 mg/dL (Negative) 04/01/21 17:56 Urine Ketones Tr mg/dL (Negative) 04/01/21 17:56 Urine Blood Neg (Negative) 04/01/21 17:56 Urine Nitrite Neg (Negative) 04/01/21 17:56 Urine Bilirubin Neg (Negative) 04/01/21 17:56 Urine Urobilinogen < 2.0 mg/dL (<2.0) 04/01/21 17:56 Ur Leukocyte Esterase Neg (Negative) 04/01/21 17:56 Urine WBC (Auto) 1.0 /HPF (0.0-6.0) 04/01/21 17:56 Urine RBC (Auto) 4.0 /HPF (0.0-6.0) 04/01/21 17:56 Urine Mucus Few /HPF 04/01/21 17:56 Salicylates < 0.3 mg/dL (2.8-20.0) L 04/01/21 15:34 Urine Opiates Screen Negative 04/01/21 17:56 Urine Methadone Screen Negative 04/01/21 17:56 Acetaminophen 5.0 ug/mL (10.0-30.0) L 04/01/21 15:34 Ur Barbiturates Screen Negative 04/01/21 17:56 Ur Phencyclidine Scrn Negative 04/01/21 17:56 Ur Amphetamines Screen Negative 04/01/21 17:56 U Benzodiazepines Scrn Negative 04/01/21 17:56 Urine Cocaine Screen Negative 04/01/21 17:56 U Marijuana (THC) Screen Positive 04/01/21 17:56 Drugs of Abuse Note Disclamer 04/01/21 17:56 Plasma/Serum Alcohol < 0.01 % (0-0.07) 04/01/21 15:34 Coronavirus (PCR) Negative (Negative) 04/02/21 08:24 Microbiology: Microbiology 04/01/21 15:34 Peripheral/Venous Blood Culture - Preliminary NO GROWTH AFTER 4 DAYS 04/01/21 15:34 Peripheral/Venous Blood Culture - Preliminary NO GROWTH AFTER 4 DAYS Mcgill/IV: Voiding Method Toilet Active Medications - Current Medications Current Medications: Generic Name Dose Route Start Last Admin Trade Name Freq PRN Reason Stop Dose Admin Acetaminophen 650 mg 04/01/21 16:55 04/05/21 07:40 Acetaminophen 325 Mg Tab PO 650 mg Q6H PRN Administration Pain MILD(1-3)/Fever >100.5/BARTH Acetaminophen/Butalbital/Caffeine 1 tab 04/04/21 13:50 04/04/21 15:12 Butalb/Acetaminophen/Caffeine Tab PO 1 tab Q4H PRN Administration Headache Albuterol 2.5 mg 04/01/21 16:55 Albuterol 2.5 Mg/3 Ml Nebu IH Q3HRT PRN Shortness Of Breath Amlodipine Besylate 10 mg 04/03/21 10:00 04/05/21 09:52 Amlodipine 5 Mg Tab PO 10 mg QDAY DUY Administration Ascorbic Acid 500 mg 04/01/21 22:00 04/05/21 09:52 Ascorbic Acid 500 Mg Tab PO 500 mg BID DUY Administration Cholecalciferol 1,000 unit 04/04/21 13:00 04/05/21 09:52 Cholecalciferol (Vit D3) 1000 Unit (25 Mcg) Tab PO 1,000 unit DAILY DUY Administration Dextrose 50 ml 04/02/21 16:56 Dextrose 50% In Water (25gm) 50 Ml Syringe IV Q30MIN PRN Hypoglycemia Protocol Famotidine 10 mg 04/02/21 22:00 04/05/21 09:52 Famotidine 10 Mg Tab PO 10 mg BID DUY Administration Heparin Sodium (Porcine) 5,000 unit 04/01/21 22:00 04/05/21 09:52 Heparin 5,000 Unit/1 Ml Vial SUB-Q 5,000 unit Q12HR DUY Administration Hydralazine HCl 10 mg 04/02/21 12:00 04/04/21 13:03 Hydralazine 20 Mg/1 Ml Inj IV 10 mg Q4H PRN Administration Hypertension Hydromorphone HCl 0.5 mg 04/01/21 16:55 04/03/21 10:12 Hydromorphone 1 Mg/1 Ml Inj IV 0.5 mg Q12H PRN Administration Pain , Severe (7-10) Insulin Human Isoph/Insulin Regular 45 unit 04/04/21 09:15 04/05/21 09:57 Insulin Nph/Regular 70/30 Inj SUB-Q 45 unit BIDDIAB DUY Administration Insulin Human Lispro 0 unit 04/02/21 22:00 04/05/21 11:30 Insulin Lispro 100 Unit/Ml SUB-Q 4 unit ACHS DUY Administration Protocol Labetalol HCl 200 mg 04/04/21 10:00 04/05/21 10:03 Labetalol 200 Mg Tab PO 200 mg BID DUY Administration Levetiracetam 500 mg 04/01/21 22:00 04/05/21 09:52 Levetiracetam 500 Mg/5 Ml Oral Liqd PO 500 mg BID DUY Administration Ondansetron HCl 4 mg 04/04/21 22:36 04/05/21 11:30 Ondansetron 4 Mg/2 Ml Inj IV 4 mg Q6HR PRN Administration Nausea And Vomiting Oxycodone/Acetaminophen 1 tab 04/01/21 16:55 04/04/21 20:32 Oxycodone /Acetaminophen 5-325mg Tab PO 1 tab Q6H PRN Administration Pain, Moderate (4-6) Sodium Chloride 10 ml 04/01/21 22:00 04/05/21 09:53 Sodium Chloride 0.9% 10 Ml Flush Syringe IV 10 ml BID DYU Administration Sodium Chloride 10 ml 04/01/21 16:55 04/02/21 05:41 Sodium Chloride 0.9% 10 Ml Flush Syringe IV 10 ml PRN PRN Administration LINE FLUSH Zinc Sulfate 220 mg 04/01/21 22:00 04/05/21 09:52 Zinc Sulfate 220 Mg Cap PO 220 mg BID DUY Administration Nutrition/Malnutrition Assess - Dietary Evaluation Nutrition/Malnutrition Findings: Nutrition Notes Start: 04/02/21 10:33 Freq: Status: Active Protocol: Document 04/02/21 10:33 CHARLETTE (Rec: 04/02/21 10:42 CHARLETTE [email or web address]) Nutrition Notes Need for Assessment generated from: MD Order,Education Initial or Follow up Assessment Current Diagnosis Acute Kidney Injury,Diabetes, Sepsis,Hypertension Other Pertinent Diagnosis DKA, pneu, r/o COVID-19, status epilepticus, toxic metabolic encephalopathy Current Diet NPO Labs/Tests BG 578 upon admission POC Glu range: 129-555 Pertinent Medications Vit C, Vit D4, Zinc sulfate, Insulin gtt, Solumedrol, Na bicarb, D5 1/2NS + 20mEq KCl at 125ml/hr Height 6 ft Weight 119.3 kg [place] Body Weight (kg) 80.90 BMI 35.6 Weight Status Obese Subjective/Other Information RD consulted for diet education and NTR recommendations. Pt with hx of medication noncompliance. He is not appropriate for diet education at this time. Burn Absent Trauma Absent Minimum of two criteria No #1 Nutrition Diagnosis Inadequate oral intake Etiology DKA As Evidenced by Signs and Symptoms pt NPO and on insulin drip Is patient on ventilator? No Is Patient Ambulatory and/or Out of Bed No REE-([facility]-confined to bed) 2530.284 Kcal/Kg value to use for calculation 17 Approximate Energy Requirements Using 2027 kcal/Kg Calculation Used for Recommendations Kcal/kg Additional Notes Pro needs 2g/kg IBW: 162g/day Fluid needs 1ml/kcal Nutrition Intervention Change Diet Order: Diet advancement to Cardiac/ Consistent CHO when medically feasible Goal #1 Diet advancement to meet nutrient needs Goal #2 Improved BG control Goal #3 Adherence to CHO-controlled diet Anticipated Discharge Needs: Heart-healthy/CHO-controlled diet Follow-Up By: 04/06/21 Additional Comments F/U: diet advancement, diet education needs (DM and low sodium)
[2021-04-05] MEDS: LOSARTAN 50 MG TAB PO SCH (17:50)
[2021-04-06] MEDS: INSULIN LISPRO 100 UNIT/ML SUB-Q SCH (09:22)
[2021-04-06] MEDS: INSULIN NPH/REGULAR 70/30 INJ SUB-Q SCH (09:23)
[2021-04-06] MEDS: CHOLECALCIFEROL (VIT D3) 1000 UNIT (25 mcg) TAB PO SCH (09:37)
[2021-04-06] MEDS: FAMOTIDINE 10 MG TAB PO SCH (09:37)
[2021-04-06] MEDS: HEPARIN 5,000 UNIT/1 ML VIAL SUB-Q SCH (09:37)
[2021-04-06] MEDS: ASCORBIC ACID 500 MG TAB PO SCH (09:37)
[2021-04-06] MEDS: ZINC SULFATE 220 MG CAP PO SCH (09:38)
[2021-04-06] MEDS: LOSARTAN 50 MG TAB PO SCH (09:47)
[2021-04-06] MEDS: levETIRAcetam 500 MG/5 ML ORAL LIQD PO SCH (09:47)
[2021-04-06] MEDS: amLODIPine 5 MG TAB PO SCH (09:48)
[2021-04-06 10:27] VITALS: BP 128/89
--- NOTE | 2021-04-06 14:14 | Discharge Summary ---
Providers - Providers Date of Admission: 04/01/21 16:55 Date of discharge: 04/06/21 Attending physician: LENIN HENDERSON MD 04/01/21 17:08 Consult to Dietitian/Nutrition [CONS] Routine Physician Instructions: Reason For Exam: DKA Reason for Consult: Nutrition Recommendations Reason for Consult: Diet education 04/02/21 16:27 Consult to Case Management [CONS] Routine Services Needed at Discharge: Claim Trainee Notified:: cm 04/02/21 19:36 Consult to Physician [CONS] Routine Comment: Consulting Provider: TYE FREDERICK Physician Instructions: Reason For Exam: Seizure Primary care physician: SALES RECRUITER Hospitalization Reason for admission: seziure Condition: Critical Hospital course: This is a 46-year-old male with known past medical history of DM and HTN, noncompliant with meds who was admitted for seizur, DKA, and sepsis Hospital Course to Date: 04/02/21- Patient is fully AAO, RA, no signs of any acute distress. Remains on DKA protocol, gap is closed plan to transition to SubQ insulin.. No more seizure like activities reported, EEG ispending, and Neuro is consulted. Patient has been hypertensive overnight, per patient he lost his job and insurance recently and has not been able to refill his medications. He reported that he was taking Norvasc for high blood pressure, but did not report what he was taking for his DM. Will start patient back on Norvasc Qday with some PRN Hydralazine. And case management consulted for possible medications assistance. Patient is stable for transfer to the floor once he is off the insulin gtt. 04/03/21- Patient transitioned to SubQ insulin overnight. Still hypertensive, per patient he was taking 10mg of Norvasc at home, antihypertensive adjusted to home dose. EEG and Neuro recommendation pending. Will order MRI brain for now. Continue IV Keppra Q12hrs. Electrolytes repleted, repeat in the am. Patient is stable for transfer to the floor 04/04/2021-BG remains slightly elevated. We will increase insulin to 45 units twice daily. Patient also with accelerated hypertension. We will add labetalol 200 mg p.o. twice daily to the regimen. No new seizure activity over the past 48 hours. Continue Keppra 500 mg twice daily. Await MRI and EEG. Neurology following. 04/05/2021: MRI brain and EEG pending. Patient states that headache has improved on my encounter. We will continue to follow along with neurology regarding final recommendations. Blood pressure optimization needed. We will start losartan 100 mg p.o. daily. 04/06: MRI brain demonstrated enlargement of infindibular stalk. This likely is of low clinical significance per my discussion with neurology. Patient will be advised to have images reviewed with a neurosurgeon as an outpatient. EEG was negative for seizure activity. Patient will also be discharge home with rx for insulin and was advised to follow up as an outpatient with his primary care physician. He was advised to not operate a motor vehicle until cleared by an outpatient primary care physician. Assessment and plan #Status Epilepticus - Presented with witnessed seizure - CT head with no acute intracranial abnormality - Was loaded with Keppra in the ED - EEG is pending - MRI Brain ordered - Continue Keppra BID - PRN Benzo for seizures like activity - Avoid Delirium - Maintain regular sleep cycle - Neurology consulted #Hypertension - Patient has a history of HTN - Recently lost his job, unable to afford them at this -Antihypertensive regimen in hospital: Norvasc 10 mg p.o. daily, losartan 100 mg p.o. daily, labetalol 200 mg p.o. twice daily, - PRN Hydralazine for SBP greater than 160 - Maintain adequate perfusion - Continue to monitor blood pressure per protocol #??Bilateral Pneumonia - Initial CXR with no acute findings - Presented with diminished cognition intially required O2 supplement - Remains on RA, SPO2 94 to 97% - COVID swab negative - IV steroids D/Cd - 2L O2 supplement on standby at the bedside - Continue SPO2 monitoring for a SPO2 goal above 92% - [facility] to follow #Acute kidney injury (LAY) with acute tubular necrosis (ATN) #Hypokalemia #Hyponatremia- improved - Patient's baseline is unknown - SCr. as high as 1.5 on admit - Probably related to dehydration/DKA - SCr. improved with IV rehydration, Scr. 0.9 this am - Strict intake and output - Avoid nephrotoxic medications; Renally dose medications - Monitor and replace electrolytes as needed - Trend BMP #Sepsis #Leukocytosis-improved #Lactic Acidosis- resolved #Hyperglycemia #DKA (diabetic ketoacidosis) #Uncontrolled DM - A1c 12.9 - No longer on DKA protocol - Transitioned to SubQ insulin overnight - Continue SSI ACHS and Basal 70/30 BID - Avoid Hypoglycemia #DVT prophylaxis - Continue AC- Heparin SubQ - SCDs bilateral lower extremities while in bed Disposition: 01 HOME / SELF CARE / HOMELESS Final Discharge Diagnosis (Prints w/discharge instructions): seizure Time spent for discharge: 35 Core Measure Documentation - Palliative Care Palliative Care/ Comfort Measures: Not Applicable - Core Measures Any of the following diagnoses?: none Exam - Constitutional Vitals: Temp Pulse Resp BP Pulse Ox 98.4 F 99 H 20 128/89 97 04/06/21 10:25 04/06/21 10:25 04/06/21 10:25 04/06/21 10:25 04/06/21 10:25 Plan Plan of Treatment: Barry hernandez. You are admitted for seizure. Work-up thus far has been negative for any occult cause for your seizures. You were evaluated by a neurologist who reviewed your images and EEG and did not find any source for your seizures. Recommend you follow-up as an outpatient with a neurologist as well as a primary care doctor. You will be discharged home with prescriptions for amlodipine 10 mg p.o. daily, losartan 100 mg p.o. daily, Keppra 500 mg p.o. twice daily, labetalol 200 mg p.o. twice daily, Novolin 70/30 45 units subcu twice daily. These medications were transmitted to your [facility] pharmacy. Please do not operate a motor vehicle until you are cleared by your primary care physician. Follow up with: PRIMARY CARE, [Primary Care Provider] - 7 Days Prescriptions: amLODIPine 10 mg PO QDAY 30 Days #30 tablet Losartan [Cozaar] 100 mg PO QDAY 30 Days #30 tablet levETIRAcetam [Keppra TAB] 500 mg PO BID 30 Days #60 tablet labetaloL [Labetalol 200mg TAB] 200 mg PO BID 30 Days #60 tablet Insulin NPH/Regular [NovoLIN 70/30] 45 unit SUB-Q BIDDIAB 30 Days #4 vial
== END 2021-04-06 14:55 | disposition home or self-care (01) | DRG 871 ==
LOC: ED 15:26 → CC1 16:55 → 3A 04-04 00:20
PROVIDERS: ADMIT Internal Medicine; ATTEND Internal Medicine
DX: A41.9 Sepsis, unspecified organism (principal); E11.10 Type 2 diabetes mellitus with ketoacidosis without coma; G92.8 Other toxic encephalopathy; J18.9 Pneumonia, unspecified organism; N17.0 Acute kidney failure with tubular necrosis; G40.801 Other epilepsy, not intractable, with status epilepticus; E87.1 Hypo-osmolality and hyponatremia; E87.6 Hypokalemia; Z20.822 Contact with and (suspected) exposure to COVID-19; Z83.3 Family history of diabetes mellitus; Z82.49 Family history of ischemic heart disease and other diseases of the circulatory system
CPT/HCPCS: 36415; 70450; 70553; 71045; 80048; 80076; 80307; 80320; 81001; 82140; 82805; 82962; 83036; 83615; 83690; 83735; 83880; 84100; 84145; 84443; 84484; 85007; 85025; 85027; 85379; 85610; 85730; 86140; 87040; 87086; 93005; 95819; 99291; G0378; J3480; J3490; J7060; Q0162; Q0177; Q9967; A9575; G0480; J0360; J0456; J0696; J1170; J1644; J1815; J1953; J2060; J2405; J2920; J3370; J3475; J7030; J7040; J7050; J7120; U0003